=== PATIENT | male | born 1980 | race Caucasian/White ===

== ENCOUNTER 2021-07-25 22:22 | Emergency (ER) | payer MEDICAID ==
[~2021-07-25] VITALS: Ht 175.3 cm; Wt 109.0 kg
[2021-07-25 23:05] VITALS: BP 138/74
[2021-07-25] MEDS ORDERED: normal saline 1000ml 1,000 ML IV ONE ×2 (23:15)
[2021-07-25] MEDS ORDERED: insulin regular, human 10 units/0.1 ml syringe SQ ONE (23:30)
== END 2021-07-26 00:50 ==
LOC: ER 22:23
DX: E11.65 Type 2 diabetes mellitus with hyperglycemia (principal); F32.9 Major depressive disorder, single episode, unspecified; F15.90 Other stimulant use, unspecified, uncomplicated; F11.90 Opioid use, unspecified, uncomplicated; Z90.89 Acquired absence of other organs; Z98.890 Other specified postprocedural states
CPT/HCPCS: 82948; 96360; 96372; 99283; J1815; J7030

== ENCOUNTER 2021-11-09 19:01 | Emergency (ER) | payer MEDICAID ==
[~2021-11-09] VITALS: Ht 177.8 cm; Wt 125.0 kg
[2021-11-09] MEDS ORDERED: normal saline 1000ML IV soln IVB ONE (19:40)
[2021-11-09 20:15] LABS: BASOPHILS % (AUTO) 0.5 % (0-1); EOSINOPHILS # (AUTO) 0.2 X10'3 (0-0.9); EOSINOPHILS % (AUTO) 1.9 % (0-6); HEMOGLOBIN 13.1 g/dl (14.0-17.9); LYMPHOCYTES # (AUTO) 1.1 X10'3 (1.1-4.8); LYMPHOCYTES % (AUTO) 14.2 % (21-51); MEAN CORPUSCULAR HEMOGLOBIN 32.7 PG (27.0-31.0); MEAN CORPUSCULAR HGB CONC 35.5 g/dL (33.0-36.5); MEAN PLATELET VOLUME 7.3 FL (7.4-10.4); MONOCYTES # (AUTO) 0.6 X10'3 (0-0.9); NEUTROPHILS # (AUTO) 6.1 X10'3 (1.8-7.7); NEUTROPHILS % (AUTO) 75.4 % (42-75); PLATELET COUNT 306 X10'3 (140-440); RED BLOOD COUNT 4.02 X10'6 (4.70-6.10); RED CELL DISTRIBUTION WIDTH 13.7 % (11.5-14.5)
[2021-11-09] MEDS ORDERED: insulin regular, human 10 units/0.1 ml syringe IV ONE (20:20)
[2021-11-09 20:29] LABS: ALANINE AMINOTRANSFERASE 40 U/L (12-78); ALBUMIN 3.2 G/DL (3.4-5.0); ALBUMIN/GLOBULIN RATIO 0.5 (1.1-1.5); ALKALINE PHOSPHATASE 75 IU/L (46-116); ANION GAP 7 (8-16); ASPARTATE AMINO TRANSFERASE 23 U/L (10-37); BILIRUBIN,TOTAL 0.2 MG/DL (0.1-1.0); BLOOD UREA NITROGEN 21 MG/DL (7-18); CALCIUM 8.9 MG/DL (8.5-10.1); CHLORIDE 94 MMOL/L (99-107); CREATININE 1.31 MG/DL (0.60-1.10); LIPASE 66 U/L (73-393); SODIUM 130 MMOL/L (135-145); TOTAL CARBON DIOXIDE 28.9 MMOL/L (24-32); TOTAL PROTEIN 9.4 G/DL (6.4-8.2); eGFR 60 ML/MIN
[2021-11-09 20:41] LABS: POTASSIUM 4.7 MMOL/L (3.5-5.1)
[2021-11-09 20:43] LABS: GLUCOSE 634 MG/DL (70-104)
[2021-11-09 21:24] VITALS: BP 147/91
== END 2021-11-09 21:26 | disposition home or self-care (01) ==
LOC: ER 19:01
DX: E11.65 Type 2 diabetes mellitus with hyperglycemia (principal); J42 Unspecified chronic bronchitis; R07.89 Other chest pain; R05.9 Cough, unspecified; F32.9 Major depressive disorder, single episode, unspecified; F17.200 Nicotine dependence, unspecified, uncomplicated; F12.90 Cannabis use, unspecified, uncomplicated; Z90.89 Acquired absence of other organs; Z98.890 Other specified postprocedural states
CPT/HCPCS: 36415; 71045; 80053; 82948; 83690; 85025; 96361; 96374; 99284; J1815; J7030

== ENCOUNTER 2023-02-03 19:47 | Inpatient (IN) | payer MEDICAID ==
[~2023-02-03] VITALS: Ht 177.8 cm; Wt 118.2 kg
[2023-02-03] MEDS ORDERED: temazepam 15mg capsule PO PRN (21:00)
[2023-02-03] MEDS ORDERED: cefepime 2g/NS 100ml ADVANTAGE 100 ML IV STA (21:49)
[2023-02-03] MEDS ORDERED: normal saline 1000ml 1,000 ML IV ONE (21:50)
[2023-02-03] MEDS ORDERED: vancomycin/NS 1 GM ADD-VANTAGE 250 ML IV ONE (21:50)
[2023-02-03 22:23] LABS: BASOPHILS % (AUTO) 0.4 % (0-1); EOSINOPHILS % (AUTO) 0.2 % (0-6); HEMATOCRIT 32.4 % (42.0-52.0); HEMOGLOBIN 10.9 g/dl (14.0-17.9); LYMPHOCYTES # (AUTO) 0.9 X10'3 (1.1-4.8); LYMPHOCYTES % (AUTO) 8.2 % (21-51); MEAN CORPUSCULAR HEMOGLOBIN 30.7 PG (27.0-31.0); MEAN CORPUSCULAR HGB CONC 33.7 g/dL (33.0-36.5); MEAN CORPUSCULAR VOLUME 90.9 FL (78-98); MEAN PLATELET VOLUME 7.1 FL (7.4-10.4); MONOCYTES # (AUTO) 0.8 X10'3 (0-0.9); MONOCYTES % (AUTO) 6.5 % (2-12); NEUTROPHILS # (AUTO) 9.8 X10'3 (1.8-7.7); NEUTROPHILS % (AUTO) 84.7 % (42-75); PLATELET COUNT 482 X10'3 (140-440); RED BLOOD COUNT 3.56 X10'6 (4.70-6.10); RED CELL DISTRIBUTION WIDTH 13.9 % (11.5-14.5); WHITE BLOOD COUNT 11.6 X10'3 (4.5-11.0)
[2023-02-03 22:27] LABS: CLARITY,URINE CLEAR (Clear); COLOR,URINE YELLOW (Yellow); GLUCOSE, URINE >=1000 mg/dl (Neg); KETONES,URINE 15 mg/dl (Neg); LEUKOCYTE ESTERASE ,URINE NEGATIVE (Neg); NITRITES, URINE NEGATIVE (Neg); OCCULT BLOOD,URINE SMALL (Neg); PROTEIN,URINE 100 mg/dl (Neg); UROBILINOGEN,URINE 0.2 E.U/dL (0.2-1.0)
[2023-02-03 22:31] LABS: UA COLLECTION TYPE CLN CATCH MIDSTREAM
[2023-02-03 22:33] LABS: BACTERIA,URINE NONE SEEN /HPF (Neg); RBC,URINE 0-2 /HPF (0-2); SQUAMOUS EPITHELIAL CELL,UR FEW /LPF (FEW); WBC,URINE 0-4 /HPF (0-4)
[2023-02-03 22:49] LABS: ALANINE AMINOTRANSFERASE 8 U/L (12-78); ALBUMIN 2.5 G/DL (3.4-5.0); ALBUMIN/GLOBULIN RATIO 0.4 (1.1-1.5); ALKALINE PHOSPHATASE 86 IU/L (46-116); ANION GAP 7 (8-16); ASPARTATE AMINO TRANSFERASE 11 U/L (10-37); BILIRUBIN,TOTAL 0.3 MG/DL (0.1-1.0); BLOOD UREA NITROGEN 15 MG/DL (7-18); BUN/CREATININE RATIO 12.9 (5.4-32.0); CHLORIDE 93 MMOL/L (99-107); CREATININE 1.16 MG/DL (0.60-1.10); MAGNESIUM 1.8 MG/DL (1.5-2.4); POTASSIUM 4.4 MMOL/L (3.5-5.1); SODIUM 128 MMOL/L (135-145); TOTAL CARBON DIOXIDE 27.7 MMOL/L (24-32); TOTAL PROTEIN 9.1 G/DL (6.4-8.2); eGFR 69 ML/MIN
[2023-02-03] MEDS ORDERED: mag hydrox/Alum hydrox/simeth 30ml oral suspension PO PRN (23:00)
[2023-02-03] MEDS ORDERED: acetaminophen 325mg tablet PO PRN ×2 (23:00)
[2023-02-03] MEDS ORDERED: potassium Cl 40MEQ/1/2NS 520ml 520 ML IV PRN (23:00)
[2023-02-03] MEDS ORDERED: DEXTROSE 15 GM of carb/4 tabs (each vial/BOTTLE has 4 tablets) PO PRN ×2 (23:00)
[2023-02-03] MEDS ORDERED: glucagon, human recombinant 1mg kit SUBCUT PRN (23:00)
[2023-02-03] MEDS ORDERED: magnesium Cl slow-release 64mg tablet PO PRN (23:00)
[2023-02-03] MEDS ORDERED: bisacodyl 10mg suppository rectal RC PRN (23:00)
[2023-02-03] MEDS ORDERED: MESSAGE TO PHARMACY PO ONE (23:00)
[2023-02-03] MEDS ORDERED: potassium Cl 20 mEq SR tablet PO PRN ×2 (23:00)
[2023-02-03] MEDS: normal saline 1000ml 1,000 ML IV SCH (23:00)
[2023-02-03] MEDS ORDERED: ondansetron/PF 4mg/2ml inj IV PRN (23:00)
[2023-02-03] MEDS ORDERED: HYDROcodone/acetaminophen 5mg/325mg tablet PO PRN (23:00)
[2023-02-03] MEDS ORDERED: dextrose 50%-water 50ml dispensing syringe IV PRN ×2 (23:00)
[2023-02-03] MEDS ORDERED: magnesium 4gm in 100ml NS 100 ML IV PRN (23:00)
[2023-02-03 23:04] LABS: GLUCOSE 600 MG/DL (70-104)
--- NOTE | 2023-02-03 23:59 | NUR ---
Per Dr. García. Nighttime correctional tool, Level 2 to be used for initial humalog administration.
[2023-02-04] MEDS: insulin Lispro (HumaLOG) vial - multi-dose SQ SCH ×3 (00:25→21:26)
[2023-02-04] MEDS: insulin glargine (Lantus) pen - multi-dose SQ SCH ×2 (01:00→21:24)
--- NOTE | 2023-02-04 01:09 | NUR ---
TIGHT ROPE WALKER Syeda trimmed flap of loose skin from wound on medial aspect of Right foot. Wounds dressed with xeroform gauze and gauze roll.
[2023-02-04] MEDS ORDERED: NO HOME MEDS (05:28)
[2023-02-04] MEDS: cefepime 1GM/NS ADD-VANTAGE 100 ML IV SCH ×3 (07:03→22:21)
[2023-02-04] MEDS: docusate sod 100mg capsule PO SCH ×2 (07:09→20:53)
[2023-02-04] MEDS: heparin, porcine 5000 units/ml vial SQ SCH ×2 (07:10→20:54)
[2023-02-04] MEDS: K and/or MAG REPLACEMENT MC SCH ×2 (08:00→20:00)
[2023-02-04 08:09] LABS: BASOPHILS % (AUTO) 0.4 % (0-1); EOSINOPHILS # (AUTO) 0.1 X10'3 (0-0.9); HEMATOCRIT 31.5 % (42.0-52.0); HEMOGLOBIN 10.9 g/dl (14.0-17.9); LYMPHOCYTES # (AUTO) 1.5 X10'3 (1.1-4.8); LYMPHOCYTES % (AUTO) 16.4 % (21-51); MEAN CORPUSCULAR HGB CONC 34.5 g/dL (33.0-36.5); MEAN CORPUSCULAR VOLUME 89.8 FL (78-98); MEAN PLATELET VOLUME 6.7 FL (7.4-10.4); MONOCYTES # (AUTO) 0.9 X10'3 (0-0.9); MONOCYTES % (AUTO) 10.1 % (2-12); NEUTROPHILS # (AUTO) 6.5 X10'3 (1.8-7.7); NEUTROPHILS % (AUTO) 72.1 % (42-75); PLATELET COUNT 423 X10'3 (140-440); RED CELL DISTRIBUTION WIDTH 13.9 % (11.5-14.5)
[2023-02-04 08:20] LABS: ALANINE AMINOTRANSFERASE 10 U/L (12-78); ALBUMIN 2.1 G/DL (3.4-5.0); ALBUMIN/GLOBULIN RATIO 0.4 (1.1-1.5); ALKALINE PHOSPHATASE 67 IU/L (46-116); ANION GAP 5 (8-16); ASPARTATE AMINO TRANSFERASE 12 U/L (10-37); BILIRUBIN,TOTAL 0.3 MG/DL (0.1-1.0); BLOOD UREA NITROGEN 11 MG/DL (7-18); BUN/CREATININE RATIO 14.9 (5.4-32.0); CALCIUM 8.6 MG/DL (8.5-10.1); CHLORIDE 101 MMOL/L (99-107); CREATININE 0.74 MG/DL (0.60-1.10); GLUCOSE 264 MG/DL (70-104); MAGNESIUM 1.7 MG/DL (1.5-2.4); POTASSIUM 3.6 MMOL/L (3.5-5.1); SODIUM 134 MMOL/L (135-145); TOTAL CARBON DIOXIDE 27.7 MMOL/L (24-32); TOTAL PROTEIN 7.9 G/DL (6.4-8.2); eGFR > 90 ML/MIN
[2023-02-04] MEDS: HYDROcodone/acetaminophen 10/325mg tab PO PRN ×3 (09:57→20:53)
[2023-02-04] MEDS: VANCOmycin 1250MG/NS 250ml Bag 250 ML IV SCH ×2 (09:57→23:30)
[2023-02-04] MEDS: normal saline 1000ml 1,000 ML IV SCH ×3 (09:58→20:54)
--- NOTE | 2023-02-04 10:05 | NUR ---
Patient had episode of low O2 sat while he was sleeping, went down to 84% on room air. I woke up patient then went up to 91%. Hooked patient to O2 at 2 lpm/nc. Pt admitted he has sleep apnea history but said to me that he do not have CPAP currently
[2023-02-04] MEDS ORDERED: vancomycin/NS 1 GM ADD-VANTAGE 250 ML IV SCH (11:00)
[2023-02-04] MEDS: clindamycin 600mg/D5W 50ml 50 ML IV SCH ×3 (11:06→20:54)
--- NOTE | 2023-02-04 11:20 | NUR ---
I was notified that MRI cannot get done today due to staffing issue at their dept
--- NOTE | 2023-02-04 11:23 | NUR ---
Paged Dr. Pavon: SHAMIR Buckley RN RE: Deni Carrington. Just FERMÍN, MRI lower extremity cannot done today due to staffing issue
--- NOTE | 2023-02-04 11:24 | NUR ---
Wound care of right foot performed by wound care nurse at bedside.
[2023-02-04 12:17] LABS: URINE AMPHETAMINE SCREEN NEGATIVE (Neg); URINE BARBITUATE SCREEN NEGATIVE (Neg); URINE BENZODIAZEPINES SCREEN NEGATIVE (Neg); URINE CANNABINOID SCREEN NEGATIVE (Neg); URINE COCAINE SCREEN NEGATIVE (Neg); URINE METHADONE SCREEN NEGATIVE (Neg); URINE OPIATE SCREEN NEGATIVE (Neg); URINE PHENCYCLIDINE SCREEN NEGATIVE (Neg)
--- NOTE | 2023-02-04 13:35 | NUR ---
PRESSURE ULCER EDUCATION: DEFINITION: A pressure ulcer is an area of skin that breaks down when you stay in one position too long. The constant pressure against the skin reduces the blood flow to that area and the affected tissue dies. CAUSES: "Being bedridden or in a wheelchair "Fragile skin "Having a chronic condition, such as diabetes or vascular disease "Inability to move certain parts of your body without assistance "Older age "Incontinence of urine or stool SYMPTOMS: "A reddened area that DOES NOT turn white when pressed on - this can be the beginning of a pressure ulcer "A blister, deep sore or a crater - these can be advanced pressure ulcers FIRST AID: "Relieve the pressure on this area "Keep the area clean and dry "Call your primary doctor if you see any of the above symptoms "DO NOT massage the area "DO NOT use a donut shaped or ring shaped pillow- these actually interfere with the blood flow and cause complications PREVENTION: "Check for pressure ulcers everyday "Change position at least every two hours to relieve pressure "Use items that help relieve pressure- pillows, sheepskin, foam padding, and powders. "Keep skin clean and dry "Eat healthy well balanced meals "Exercise daily IF YOU SEE ANY OF THESE SYMPTOMS WHILE IN THE HOSPITAL - TELL YOUR NURSE IMMEDIATELY. IF YOU SEE ANY OF THESE SYMPTOMS WHILE AT HOME OR HAVE ANY QUESTIONS OR CONCERNS ABOUT PRESSURE ULCERS - CALL YOUR PRIMARY DOCTOR IMMEDIATELY. Addendum: 02/04/23 at 1336 by Radha Yanes RN Amended: Links added.
[2023-02-04] MEDS ORDERED: iohexol 350 MG/ML 50ML vial IV ONE (14:32)
[2023-02-04] MEDS ORDERED: iohexol 350MG/ML 100ml bottle IV ONE (14:33)
[2023-02-04 15:07] LABS: HEMOGLOBIN A1C > 12.0 % (4.5-6.2)
--- NOTE | 2023-02-04 15:36 | NUR ---
I called the pharmacist to request change in schedule of Cleocin as I just administered the first dose at 1100 am, the order said Q6hrs. Per pharmacist Lupe, I can non-admin the Cleocin as she cannot change the schedule.
--- NOTE | 2023-02-04 19:05 | NUR ---
Report called to Kathleen who kindly accepts report at this time. Patient cleared for transport to receiving unit.
[2023-02-04 20:10] VITALS: BP 135/70
[2023-02-04 22:00] VITALS: BP 139/73
[2023-02-04] MEDS ORDERED: heparin 10,000 units/1 ML INJ IV ONE (22:15)
[2023-02-04 23:11] LABS: APTT 31 SECONDS (22-32)
[2023-02-04] MEDS: heparin 25,000 UNIT/250ml bag 250 ML IV PRN (23:21)
[2023-02-05] MEDS: HYDROcodone/acetaminophen 10/325mg tab PO PRN ×5 (02:03→23:21)
[2023-02-05 02:05] VITALS: BP 137/76
[2023-02-05] MEDS: clindamycin 600mg/D5W 50ml 50 ML IV SCH ×4 (02:05→19:59)
[2023-02-05] MEDS: cefepime 1GM/NS ADD-VANTAGE 100 ML IV SCH ×3 (05:32→21:57)
[2023-02-05 06:00] VITALS: BP 142/81
--- NOTE | 2023-02-05 06:49 | NUR ---
Patient in room DEEP 356. I have received report from Kathleen and had the opportunity to ask questions and assume patient care.
--- NOTE | 2023-02-05 06:51 | NUR ---
Problems reprioritized. Patient report given, questions answered & plan of care reviewed with LALO ZEPEDA.
[2023-02-05 06:54] LABS: BASOPHILS # (AUTO) 0.1 X10'3 (0-0.2); BASOPHILS % (AUTO) 0.7 % (0-1); EOSINOPHILS # (AUTO) 0.1 X10'3 (0-0.9); EOSINOPHILS % (AUTO) 1.2 % (0-6); HEMOGLOBIN 9.7 g/dl (14.0-17.9); LYMPHOCYTES # (AUTO) 1.6 X10'3 (1.1-4.8); LYMPHOCYTES % (AUTO) 17.8 % (21-51); MEAN CORPUSCULAR HEMOGLOBIN 29.3 PG (27.0-31.0); MEAN CORPUSCULAR HGB CONC 32.4 g/dL (33.0-36.5); MEAN CORPUSCULAR VOLUME 90.5 FL (78-98); MEAN PLATELET VOLUME 7.2 FL (7.4-10.4); MONOCYTES # (AUTO) 0.9 X10'3 (0-0.9); MONOCYTES % (AUTO) 9.8 % (2-12); NEUTROPHILS # (AUTO) 6.4 X10'3 (1.8-7.7); NEUTROPHILS % (AUTO) 70.5 % (42-75); PLATELET COUNT 435 X10'3 (140-440); RED BLOOD COUNT 3.32 X10'6 (4.70-6.10); RED CELL DISTRIBUTION WIDTH 13.7 % (11.5-14.5)
[2023-02-05 07:24] LABS: ALANINE AMINOTRANSFERASE 7 U/L (12-78); ALBUMIN 1.8 G/DL (3.4-5.0); ALBUMIN/GLOBULIN RATIO 0.3 (1.1-1.5); ALKALINE PHOSPHATASE 61 IU/L (46-116); ANION GAP 7 (8-16); ASPARTATE AMINO TRANSFERASE 6 U/L (10-37); BILIRUBIN,TOTAL 0.2 MG/DL (0.1-1.0); BLOOD UREA NITROGEN 10 MG/DL (7-18); BUN/CREATININE RATIO 11.2 (5.4-32.0); CALCIUM 8.5 MG/DL (8.5-10.1); CHLORIDE 102 MMOL/L (99-107); CHOL/HDL RATIO 6.5 (0.00-4.99); CHOLESTEROL 216 MG/DL (0-200); CREATININE 0.89 MG/DL (0.60-1.10); GLUCOSE 333 MG/DL (70-104); HDL CHOLESTEROL 33 MG/DL (35-60); LDL CHOLESTEROL 137 MG/DL (50-100); MAGNESIUM 1.7 MG/DL (1.5-2.4); POTASSIUM 3.8 MMOL/L (3.5-5.1); SODIUM 136 MMOL/L (135-145); TOTAL CARBON DIOXIDE 26.9 MMOL/L (24-32); TOTAL PROTEIN 7.5 G/DL (6.4-8.2); TRIGLYCERIDES 232 MG/DL (20-135); eGFR > 90 ML/MIN
[2023-02-05] MEDS: K and/or MAG REPLACEMENT MC SCH ×2 (08:00→20:00)
[2023-02-05] MEDS: insulin Lispro (HumaLOG) vial - multi-dose SQ SCH ×4 (09:18→21:54)
[2023-02-05] MEDS: docusate sod 100mg capsule PO SCH ×2 (09:24→19:59)
[2023-02-05] MEDS: carVEDilol 3.125mg tablet PO SCH ×2 (09:25→19:59)
[2023-02-05] MEDS: aspirin 81mg tab.chew PO SCH (09:26)
[2023-02-05] MEDS: atorvastatin 20mg tablet PO SCH (09:26)
[2023-02-05] MEDS: lisinopril 20mg tablet PO SCH (09:26)
[2023-02-05] MEDS: VANCOmycin 1250MG/NS 250ml Bag 250 ML IV SCH ×2 (10:56→23:19)
[2023-02-05 11:00] VITALS: BP 133/74
[2023-02-05] MEDS: heparin 25,000 UNIT/250ml bag 250 ML IV PRN (11:59)
[2023-02-05] MEDS ORDERED: FLU VACC QS2022-23(6MOS UP)/PF 60 MCG/0.5 ML SYRINGE IMVAC ONE (12:00)
[2023-02-05] MEDS ORDERED: pneumococcal 23-VAL P-sac vacc 25 mcg/0.5ml vial IMVAC ONE (12:00)
--- NOTE | 2023-02-05 14:07 | NUR ---
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 R foot eschar wound w/ no depth per WOC note. Pt seen by RD for written/verbal DM diet ed w/ verbal high protein diet ed and RD contact information provided. Pt reports has been without insulin past ~2 months has attempted f/u at [facility] but unable to get refill for insulin Rx-CM notified. Pt declined verbal DM diet reports ed in past but is agreeable to written handout w/ RD contact information provided. Pt reports good appetite still hungry after meals is agreeable to additional protein TIDWM; dietary notified. RD encouraged pt to contact dietitian's office if further nutrition questions/concerns this admit. Addendum: 02/05/23 at [address] Amended: Links added.
[2023-02-05 14:38] LABS: HBSAG SCREEN Negative (Negative); HEP B CORE AB, TOT Negative (Negative)
[2023-02-05] MEDS: normal saline 1000ml 1,000 ML IV SCH ×2 (15:00→23:19)
[2023-02-05] MEDS ORDERED: GADOTERATE MEGLUMINE 7.5 MMOL/15 ML VIAL IV ONE (16:58)
[2023-02-05 18:00] VITALS: BP 116/69
--- NOTE | 2023-02-05 18:42 | NUR ---
Problems reprioritized. Patient report given, questions answered & plan of care reviewed with Addendum: 02/05/23 at 1843 by Azeb Hanson RN Report given to Kathleen
[2023-02-05 19:13] VITALS: BP 101/60
[2023-02-05] MEDS: heparin 10,000 units/1 ML INJ IV PRN (19:47)
[2023-02-05] MEDS ORDERED: VANCOMYCIN LEVEL IV ONE (21:30)
[2023-02-05] MEDS: insulin glargine (Lantus) pen - multi-dose SQ SCH (21:56)
[2023-02-05 22:00] VITALS: BP 112/64
--- NOTE | 2023-02-05 22:51 | NUR ---
Student Medication Administration: For this medication-pass time frame, all medication were reviewed, dispensed, administered and documented per hospital policy by Marycarmen PINA [facility].
--- NOTE | 2023-02-05 23:35 | NUR ---
Student documentation: I have reviewed interventions, assessments performed and documented by YOVANI Delong [facility].
[2023-02-06] VITALS (20 sets, daily range): BP systolic 96–137; BP diastolic 56–82
[2023-02-06] MEDS: heparin 25,000 UNIT/250ml bag 250 ML IV PRN (01:05)
[2023-02-06] MEDS: clindamycin 600mg/D5W 50ml 50 ML IV SCH ×4 (02:08→19:41)
[2023-02-06] MEDS: HYDROcodone/acetaminophen 10/325mg tab PO PRN ×4 (03:55→23:38)
[2023-02-06 04:59] LABS: BASOPHILS % (AUTO) 0.2 % (0-1); EOSINOPHILS # (AUTO) 0.1 X10'3 (0-0.9); EOSINOPHILS % (AUTO) 1.1 % (0-6); HEMATOCRIT 28.2 % (42.0-52.0); HEMOGLOBIN 9.6 g/dl (14.0-17.9); LYMPHOCYTES # (AUTO) 1.7 X10'3 (1.1-4.8); LYMPHOCYTES % (AUTO) 18.3 % (21-51); MEAN CORPUSCULAR HEMOGLOBIN 30.7 PG (27.0-31.0); MEAN CORPUSCULAR HGB CONC 34.2 g/dL (33.0-36.5); MEAN CORPUSCULAR VOLUME 89.8 FL (78-98); MEAN PLATELET VOLUME 7.1 FL (7.4-10.4); MONOCYTES # (AUTO) 0.8 X10'3 (0-0.9); MONOCYTES % (AUTO) 8.9 % (2-12); NEUTROPHILS # (AUTO) 6.5 X10'3 (1.8-7.7); NEUTROPHILS % (AUTO) 71.5 % (42-75); PLATELET COUNT 420 X10'3 (140-440); RED BLOOD COUNT 3.14 X10'6 (4.70-6.10); WHITE BLOOD COUNT 9.1 X10'3 (4.5-11.0)
[2023-02-06] MEDS: cefepime 1GM/NS ADD-VANTAGE 100 ML IV SCH ×3 (05:04→22:08)
[2023-02-06 05:18] LABS: ALANINE AMINOTRANSFERASE 7 U/L (12-78); ALBUMIN 1.8 G/DL (3.4-5.0); ALBUMIN/GLOBULIN RATIO 0.3 (1.1-1.5); ALKALINE PHOSPHATASE 55 IU/L (46-116); ANION GAP 5 (8-16); ASPARTATE AMINO TRANSFERASE 10 U/L (10-37); BILIRUBIN,TOTAL 0.2 MG/DL (0.1-1.0); BLOOD UREA NITROGEN 13 MG/DL (7-18); BUN/CREATININE RATIO 16.5 (5.4-32.0); CALCIUM 8.7 MG/DL (8.5-10.1); CHLORIDE 105 MMOL/L (99-107); CREATININE 0.79 MG/DL (0.60-1.10); GLUCOSE 201 MG/DL (70-104); MAGNESIUM 1.7 MG/DL (1.5-2.4); POTASSIUM 3.9 MMOL/L (3.5-5.1); SODIUM 138 MMOL/L (135-145); TOTAL CARBON DIOXIDE 28.4 MMOL/L (24-32); TOTAL PROTEIN 7.5 G/DL (6.4-8.2); eGFR > 90 ML/MIN
--- NOTE | 2023-02-06 06:27 | NUR ---
Problems reprioritized. Patient report given, questions answered & plan of care reviewed with LALO ZEPEDA.
--- NOTE | 2023-02-06 06:33 | NUR ---
Patient in room DEEP 356. I have received report from Kathleen and had the opportunity to ask questions and assume patient care.
[2023-02-06] MEDS: aspirin 81mg tab.chew PO SCH (08:30)
[2023-02-06] MEDS: K and/or MAG REPLACEMENT MC SCH ×2 (08:30→20:00)
[2023-02-06] MEDS: docusate sod 100mg capsule PO SCH ×2 (09:03→19:42)
[2023-02-06] MEDS: carVEDilol 3.125mg tablet PO SCH ×2 (09:03→19:42)
[2023-02-06] MEDS: atorvastatin 20mg tablet PO SCH (09:03)
[2023-02-06] MEDS: lisinopril 20mg tablet PO SCH (09:08)
[2023-02-06] MEDS: insulin Lispro (HumaLOG) vial - multi-dose SQ SCH ×2 (09:18→20:14)
--- NOTE | 2023-02-06 09:52 | NUR ---
Stopped heparin drip at 07:00 per surgeon. Heparin to be restarted 6 hours after surgery. Scheduled ptt lab draw at 09:07 resulted in 27 ptt. Spoke with lab regarding next draw, results and restart time frame.
[2023-02-06] MEDS: VANCOmycin 1250MG/NS 250ml Bag 250 ML IV SCH ×2 (10:48→23:20)
[2023-02-06] MEDS: normal saline 1000ml 1,000 ML IV SCH ×2 (11:00→21:00)
[2023-02-06] MEDS ORDERED: pneumococcal 23-VAL P-sac vacc 25 mcg/0.5ml vial IMVAC ONE (11:30)
--- NOTE | 2023-02-06 11:59 | NUR ---
Dr Mcgregor was contacted, and stated he will consult on this pt today.
[2023-02-06] MEDS ORDERED: BUPIVAcaine 0.5% inj/PF 30 ML ONE (12:18)
[2023-02-06] MEDS ORDERED: FLU VACC QS2022-23(6MOS UP)/PF 60 MCG/0.5 ML SYRINGE IMVAC ONE (13:00)
--- NOTE | 2023-02-06 13:00 | NUR ---
Patient went to OR
[2023-02-06] MEDS ORDERED: sevoflurane 250ml liquid IH ONE (13:03)
[2023-02-06] MEDS ORDERED: midazolam 1 mg/ML 2ml injection ONE (13:08)
[2023-02-06] MEDS ORDERED: fentaNYL/PF 50MCG/1 ML 2ML syringe ONE (13:08)
[2023-02-06] MEDS ORDERED: propofol inj 20 ML IV ONE (13:09)
[2023-02-06] MEDS ORDERED: vancomycin 1,000mg inj ONE (13:34)
[2023-02-06] MEDS ORDERED: BUPIVAcaine 0.5% inj/PF 30 ml vial IJ ONE (13:41)
--- NOTE | 2023-02-06 13:43 | NUR ---
Student documentation:[facility] student Leigh I have reviewed and agree with all interventions, assessments performed and medication administration per hospital policy and documented by Mariam
--- NOTE | 2023-02-06 13:53 | NUR ---
Received from OR via ORTHO BED WITH GAADRIAN , accompanied by Anesthesiologist GERALDINE and report given by Anesthesiolgist. PATIENT WITH 29G PIV IN RIGHT UE RUNNING LR AT 100. GLENDA VASQUEZ .RIGHT ANKLE AND FOOT COVERED WITH GAUZE DRESSING WITH TOES EXPOSED. + CAP REFILL TO EXPOSED TOES. ELEVATED FOOT OF BED AND GATCHED FOB. 10L MASK ON WITH 100% SATURATIONS. Addendum: 02/06/23 at 1409 by Toby Bui RN, RN Amended: Links added.
[2023-02-06] MEDS ORDERED: morphine 4 MG/ML inj SYRINge IV PRN (14:00)
[2023-02-06] MEDS ORDERED: proCHLORperazine 10 MG/2 ml inj IV PRN (14:00)
[2023-02-06] MEDS ORDERED: meperidine/PF 25mg/ml syringe IV PRN ×3 (14:00)
[2023-02-06] MEDS ORDERED: ringers solution, lacted 1,000 ML IV SCH (14:00)
[2023-02-06] MEDS ORDERED: ondansetron/PF 4mg/2ml inj IV PRN (14:00)
[2023-02-06] MEDS ORDERED: morphine 2 MG/ML inj. syringe IV PRN (14:00)
--- NOTE | 2023-02-06 14:29 | NUR ---
Patient in room DEEP 356. I have received report from Toby in recovery and had the opportunity to ask questions and assume patient care.
--- NOTE | 2023-02-06 14:33 | NUR ---
Report called to receiving nurse. Transferred via ORTHO BED WITH NO Belongings . Special Issues communicated to receiving nurse DUANE MAY. VSS. RECENTLY MEDICATED FOR PAIN. ELEVATED LE ABOVE HEART WITH GATCHED BED. VSS. ALL BELONGINGS IN PATIENT ROOM. CALL LIGHT IN HAND. Addendum: 02/06/23 at 1436 by Toby Bui RN, RN Amended: Links added.
--- NOTE | 2023-02-06 14:50 | NUR ---
Patient returned from recovery, situated in room, post op vitals started. Patient is resting comfortably.
--- NOTE | 2023-02-06 18:20 | NUR ---
Patient in room DEEP 356. I have received report from LALO Bowie and had the opportunity to ask questions and assume patient care.
--- NOTE | 2023-02-06 18:30 | NUR ---
Problems reprioritized. Patient report given, questions answered & plan of care reviewed with
[2023-02-06] MEDS: insulin glargine (Lantus) pen - multi-dose SQ SCH (22:12)
[2023-02-07] MEDS: clindamycin 600mg/D5W 50ml 50 ML IV SCH ×2 (02:08→08:30)
[2023-02-07] MEDS: heparin 25,000 UNIT/250ml bag 250 ML IV PRN ×2 (03:45→16:07)
[2023-02-07] MEDS: HYDROcodone/acetaminophen 10/325mg tab PO PRN ×5 (04:58→22:02)
[2023-02-07 05:06] LABS: BASOPHILS # (AUTO) 0.1 X10'3 (0-0.2); BASOPHILS % (AUTO) 0.7 % (0-1); EOSINOPHILS # (AUTO) 0.1 X10'3 (0-0.9); EOSINOPHILS % (AUTO) 0.7 % (0-6); HEMATOCRIT 27.3 % (42.0-52.0); HEMOGLOBIN 9.1 g/dl (14.0-17.9); LYMPHOCYTES # (AUTO) 1.6 X10'3 (1.1-4.8); LYMPHOCYTES % (AUTO) 16.3 % (21-51); MEAN CORPUSCULAR HEMOGLOBIN 30.1 PG (27.0-31.0); MEAN CORPUSCULAR HGB CONC 33.4 g/dL (33.0-36.5); MEAN CORPUSCULAR VOLUME 90.2 FL (78-98); MEAN PLATELET VOLUME 6.8 FL (7.4-10.4); MONOCYTES % (AUTO) 10.3 % (2-12); NEUTROPHILS # (AUTO) 7.1 X10'3 (1.8-7.7); PLATELET COUNT 465 X10'3 (140-440); RED BLOOD COUNT 3.02 X10'6 (4.70-6.10); WHITE BLOOD COUNT 9.8 X10'3 (4.5-11.0)
[2023-02-07 05:21] LABS: ALBUMIN 1.8 G/DL (3.4-5.0); ALBUMIN/GLOBULIN RATIO 0.3 (1.1-1.5); ALKALINE PHOSPHATASE 61 IU/L (46-116); ANION GAP 9 (8-16); ASPARTATE AMINO TRANSFERASE 14 U/L (10-37); BILIRUBIN,TOTAL 0.2 MG/DL (0.1-1.0); BLOOD UREA NITROGEN 7 MG/DL (7-18); BUN/CREATININE RATIO 9.9 (5.4-32.0); CALCIUM 8.5 MG/DL (8.5-10.1); CHLORIDE 102 MMOL/L (99-107); CREATININE 0.71 MG/DL (0.60-1.10); GLUCOSE 218 MG/DL (70-104); MAGNESIUM 1.7 MG/DL (1.5-2.4); POTASSIUM 3.9 MMOL/L (3.5-5.1); SODIUM 136 MMOL/L (135-145); TOTAL CARBON DIOXIDE 25.3 MMOL/L (24-32); TOTAL PROTEIN 7.8 G/DL (6.4-8.2); eGFR > 90 ML/MIN
[2023-02-07 05:24] LABS: ALANINE AMINOTRANSFERASE < 6 U/L (12-78)
[2023-02-07] MEDS: heparin 10,000 units/1 ML INJ IV PRN ×2 (05:40→20:23)
[2023-02-07 06:00] VITALS: BP 138/70
--- NOTE | 2023-02-07 06:25 | NUR ---
Problems reprioritized. Patient report given, questions answered & plan of care reviewed with LALO Foster.
[2023-02-07] MEDS: normal saline 1000ml 1,000 ML IV SCH ×2 (07:00→17:00)
--- NOTE | 2023-02-07 07:01 | NUR ---
Patient in room DEEP 356. I have received report from angela MAY and had the opportunity to ask questions and assume patient care.
[2023-02-07] MEDS: K and/or MAG REPLACEMENT MC SCH ×2 (08:00→20:00)
[2023-02-07 08:01] VITALS: BP 139/72
[2023-02-07] MEDS: docusate sod 100mg capsule PO SCH ×2 (08:19→19:42)
[2023-02-07] MEDS: lisinopril 20mg tablet PO SCH (08:29)
[2023-02-07] MEDS: carVEDilol 3.125mg tablet PO SCH ×2 (08:29→19:42)
[2023-02-07] MEDS: atorvastatin 20mg tablet PO SCH (08:29)
[2023-02-07] MEDS: aspirin 81mg tab.chew PO SCH (08:30)
[2023-02-07] MEDS: cefepime 1GM/NS ADD-VANTAGE 100 ML IV SCH ×2 (09:42→22:41)
[2023-02-07] MEDS: insulin Lispro (HumaLOG) vial - multi-dose SQ SCH ×3 (09:42→19:42)
[2023-02-07 10:00] VITALS: BP 118/68
--- NOTE | 2023-02-07 11:03 | NUR ---
Initial: Pt admit DX R 3rd toe gangrene w/ cellulitis s/p OR for toe amputation 02/06, T2DM A1C >12.0%, HTN, and hyperlipidemia per EMR. PO ~100% initial carb controlled meals w/ double protein TIDWM started 02/05 in addition to pt having sandwich between meals during prior RD visit; meeting estimated needs. LBM 02/02 routine colace started 02/04 per EMR. No further nutrition interventions at this time. Will continue to follow. Rec: 1. continue carb controlled diet; double protein TIDWM for satiety 2. routine bowel care; utilize PRN bowel regimen in EMR w/ 5 days constipation 3. scaled wt this admit; subsequent weekly wts Addendum: 02/07/23 at [address] Amended: Links added.
[2023-02-07] MEDS: VANCOmycin 1250MG/NS 250ml Bag 250 ML IV SCH ×2 (12:05→23:17)
--- NOTE | 2023-02-07 12:43 | NUR ---
Pt in room 356A. I have received report from student nurse, Jane. I had the ability to ask questions and have assume patient care along with RN, Kristin.
[2023-02-07] MEDS: FLUoxetine 20mg capsule PO SCH (13:11)
--- NOTE | 2023-02-07 14:43 | NUR ---
DIABETIC FOOT CARE EDUCATION PROVIDED BY WOUND CARE * Wash your feet daily with lukewarm water and soap. * Dry your feet well, especially between the toes. * Keep the skin moisturized with lotion, but do not apply it between the toes. * Check your feet for blisters, cuts or sores. * Use an emery board to shape your toenails even with the ends of your toes. * Change daily into clean, soft socks or stockings, not too big or too small. * Keep your feet warm and dry. * Preferably wear special padded socks and shoes that fit well. * Never walk barefoot indoors or outdoors. * Examine your shoes everyday for cracks, johnnie, nails or anything that could hurt your feet. * Tell your doctor if you find any of these problems or have any concerns after examining your feet. Addendum: 02/07/23 at 1443 by Radha Yanes RN Amended: Links added.
--- NOTE | 2023-02-07 15:20 | NUR ---
Message: Deni Carrington#[id number]- Pt loss yet another IV, infiltrated x3, very hard stick. Dr Rosenthal wants a PICC to get all IV meds on board.1 IV OK but pt has heparin drip. Please sign picc order BJ Form with charge.Thank you.
--- NOTE | 2023-02-07 17:44 | NUR ---
PT LOST HIS IV. SEVERAL NURSES ATTEMPTED IVS. CHARGE ANTONIO PUT ONE IN ON RIGHT AC, WORKED FOR A COUPLE OF HRS, THEN IT WAS SAYING HIGH PRESSURE. PICC WAS CALLED, A PIV RIGHT FOREARM, IV INFILTRATED WITHIN 1 HR. VANCO WAS RUNNING, NO MORE PIV AVAILABLE. DR CAZARES WAS CALLED SHE IS AWARE. DR JAUREGUI WAS PAGED. HE IS AWARE. ER IS ATTEMPTING TO START A PIV, SHE IS GOING BACK TO ER TO GET ULTRASOUND. PHARMACY IS AWARE OF VANCO AND ANTIBIOTICS NOT BEEN GIVEN.
[2023-02-07 18:00] VITALS: BP 133/64
--- NOTE | 2023-02-07 18:13 | NUR ---
Problems reprioritized. Patient report given, questions answered & plan of care reviewed with BRIDGER MAY .
[2023-02-07] MEDS ORDERED: potassium Cl 40MEQ/1/2NS 520ml 520 ML IV PRN ×2 (18:15)
[2023-02-07] MEDS ORDERED: potassium Cl 20 mEq SR tablet PO PRN ×2 (18:15)
--- NOTE | 2023-02-07 18:20 | NUR ---
Patient in room DEEP 356. I have received report from LALO Foster and had the opportunity to ask questions and assume patient care.
[2023-02-07] MEDS: insulin glargine (Lantus) pen - multi-dose SQ SCH (21:33)
[2023-02-07 22:00] VITALS: BP 123/63
[2023-02-08] MEDS: clindamycin 600mg/D5W 50ml 50 ML IV SCH ×3 (01:59→14:26)
[2023-02-08] MEDS: HYDROcodone/acetaminophen 10/325mg tab PO PRN ×4 (02:00→20:49)
[2023-02-08] MEDS: normal saline 1000ml 1,000 ML IV SCH ×3 (03:00→23:00)
[2023-02-08 05:06] LABS: BASOPHILS % (AUTO) 0.4 % (0-1); EOSINOPHILS # (AUTO) 0.1 X10'3 (0-0.9); EOSINOPHILS % (AUTO) 0.8 % (0-6); HEMATOCRIT 27.8 % (42.0-52.0); HEMOGLOBIN 9.8 g/dl (14.0-17.9); LYMPHOCYTES # (AUTO) 1.5 X10'3 (1.1-4.8); LYMPHOCYTES % (AUTO) 15.4 % (21-51); MEAN CORPUSCULAR HEMOGLOBIN 31.5 PG (27.0-31.0); MEAN CORPUSCULAR VOLUME 90.1 FL (78-98); MEAN PLATELET VOLUME 6.6 FL (7.4-10.4); MONOCYTES # (AUTO) 1.1 X10'3 (0-0.9); MONOCYTES % (AUTO) 11.2 % (2-12); NEUTROPHILS # (AUTO) 7.2 X10'3 (1.8-7.7); NEUTROPHILS % (AUTO) 72.2 % (42-75); PLATELET COUNT 444 X10'3 (140-440); RED BLOOD COUNT 3.09 X10'6 (4.70-6.10)
[2023-02-08 05:21] LABS: ALBUMIN 1.7 G/DL (3.4-5.0); ALBUMIN/GLOBULIN RATIO 0.3 (1.1-1.5); ALKALINE PHOSPHATASE 53 IU/L (46-116); ANION GAP 7 (8-16); ASPARTATE AMINO TRANSFERASE 11 U/L (10-37); BILIRUBIN,TOTAL 0.2 MG/DL (0.1-1.0); BLOOD UREA NITROGEN 10 MG/DL (7-18); BUN/CREATININE RATIO 12.8 (5.4-32.0); CALCIUM 8.6 MG/DL (8.5-10.1); CHLORIDE 105 MMOL/L (99-107); CREATININE 0.78 MG/DL (0.60-1.10); GLUCOSE 174 MG/DL (70-104); POTASSIUM 3.9 MMOL/L (3.5-5.1); SODIUM 140 MMOL/L (135-145); TOTAL CARBON DIOXIDE 28.5 MMOL/L (24-32); TOTAL PROTEIN 7.7 G/DL (6.4-8.2); eGFR > 90 ML/MIN
[2023-02-08 05:31] LABS: ALANINE AMINOTRANSFERASE 7 U/L (12-78)
[2023-02-08 06:00] VITALS: BP 134/70
[2023-02-08] MEDS: cefepime 1GM/NS ADD-VANTAGE 100 ML IV SCH ×3 (06:04→21:18)
--- NOTE | 2023-02-08 06:49 | NUR ---
Problems reprioritized. Patient report given, questions answered & plan of care reviewed with JOE Enriquez.
--- NOTE | 2023-02-08 06:51 | NUR ---
Patient in room DEEP 356. I have received report from Charley MAY and had the opportunity to ask questions and assume patient care.
--- NOTE | 2023-02-08 07:39 | NUR ---
Student Medication Administration: For this medication-pass time frame, all medication were reviewed, dispensed, administered and documented per hospital policy by Mynor Chavez student with Krish Dominguez RN instructor. .
[2023-02-08] MEDS: K and/or MAG REPLACEMENT MC SCH ×2 (08:00→20:00)
[2023-02-08] MEDS: FLUoxetine 20mg capsule PO SCH (08:26)
[2023-02-08] MEDS: atorvastatin 20mg tablet PO SCH (08:26)
[2023-02-08] MEDS: aspirin 81mg tab.chew PO SCH (08:26)
[2023-02-08] MEDS: docusate sod 100mg capsule PO SCH ×2 (08:27→20:49)
[2023-02-08] MEDS: insulin Lispro (HumaLOG) vial - multi-dose SQ SCH ×3 (08:30→19:09)
[2023-02-08 08:40] VITALS: BP 118/65
[2023-02-08] MEDS: lisinopril 20mg tablet PO SCH (08:40)
[2023-02-08] MEDS: carVEDilol 3.125mg tablet PO SCH ×2 (08:40→20:48)
[2023-02-08] MEDS: heparin, porcine 5000 units/ml vial SQ SCH ×2 (08:41→20:49)
--- NOTE | 2023-02-08 09:05 | NUR ---
Message: Deni Casas: PICC nurse requesting consent to place PICC, can you please sign when you have a chance. EUGENE Enriquez [id number] Custom Responses: promotional table spacer Transaction number: [id number]
[2023-02-08] MEDS: VANCOmycin 1250MG/NS 250ml Bag 250 ML IV SCH ×2 (10:26→22:18)
--- NOTE | 2023-02-08 12:36 | NUR ---
Patient requesting different pain medication. MD notified, received new order for percocet 5 PRN, patient notified and stated, "I would rather just continue taking the norco, I have decreased receptors because of all the drugs I used to do, but it still hurts."
[2023-02-08 14:00] VITALS: BP 117/70
[2023-02-08] MEDS: magnesium hydroxide 30ml (MOM) UD suspension PO PRN (14:24)
--- NOTE | 2023-02-08 14:50 | NUR ---
Student Medication Administration: For this medication-pass time frame, all medication were reviewed, dispensed, administered and documented per hospital policy by jaime owens student nurse and nadya winkler rn.
--- NOTE | 2023-02-08 15:59 | NUR ---
Student Medication Administration: For this medication-pass time frame, all medication were reviewed, dispensed, administered and documented per hospital policy by Mynor Sood student with Krish Dominguez instructor RN MSN.
--- NOTE | 2023-02-08 17:17 | NUR ---
SECURITY INSTALLATION SALES TECHNICIAN documentation: I have reviewed and agree with all interventions, assessments performed and documented by Zoe Smalls LVN.
[2023-02-08 18:00] VITALS: BP 125/61
--- NOTE | 2023-02-08 18:32 | NUR ---
Problems reprioritized. Patient report given, questions answered & plan of care reviewed with Kavita MAY.
[2023-02-08] MEDS: clindamycin 150mg capsule PO SCH (20:56)
[2023-02-08] MEDS: insulin glargine (Lantus) pen - multi-dose SQ SCH (21:00)
[2023-02-08 22:00] VITALS: BP 119/59
[2023-02-09] MEDS: clindamycin 150mg capsule PO SCH ×4 (01:55→20:23)
[2023-02-09] MEDS: HYDROcodone/acetaminophen 10/325mg tab PO PRN ×4 (01:55→21:24)
[2023-02-09] MEDS: cefepime 1GM/NS ADD-VANTAGE 100 ML IV SCH ×3 (05:33→21:26)
--- NOTE | 2023-02-09 06:28 | NUR ---
Problems reprioritized. Patient report given, questions answered & plan of care reviewed with LALO Chilel.
--- NOTE | 2023-02-09 06:52 | NUR ---
Patient in room DEEP 356. I have received report from Kavita MAY and had the opportunity to ask questions and assume patient care.
[2023-02-09 07:08] VITALS: BP 101/59
[2023-02-09] MEDS: K and/or MAG REPLACEMENT MC SCH ×2 (08:00→20:00)
[2023-02-09] MEDS: atorvastatin 20mg tablet PO SCH (08:26)
[2023-02-09] MEDS: carVEDilol 3.125mg tablet PO SCH ×2 (08:26→20:23)
[2023-02-09] MEDS: docusate sod 100mg capsule PO SCH ×2 (08:26→20:23)
[2023-02-09] MEDS: FLUoxetine 20mg capsule PO SCH (08:26)
[2023-02-09] MEDS: aspirin 81mg tab.chew PO SCH (08:26)
[2023-02-09] MEDS: heparin, porcine 5000 units/ml vial SQ SCH ×2 (08:27→20:24)
[2023-02-09] MEDS: lisinopril 20mg tablet PO SCH (08:27)
[2023-02-09] MEDS: insulin Lispro (HumaLOG) vial - multi-dose SQ SCH ×3 (08:37→18:58)
[2023-02-09] MEDS: normal saline 1000ml 1,000 ML IV SCH ×2 (09:00→17:45)
[2023-02-09] MEDS: VANCOmycin 1250MG/NS 250ml Bag 250 ML IV SCH ×2 (10:09→22:10)
[2023-02-09] MEDS: oxyCODONE/APAP 5-325mg tablet PO PRN (12:11)
[2023-02-09 12:56] VITALS: BP 123/53
[2023-02-09 18:00] VITALS: BP 122/60
--- NOTE | 2023-02-09 18:15 | NUR ---
Problems reprioritized. Patient report given, questions answered & plan of care reviewed with Kavita MAY.
[2023-02-09] MEDS: insulin glargine (Lantus) pen - multi-dose SQ SCH (21:22)
[2023-02-09 22:00] VITALS: BP 134/66
[2023-02-10] MEDS: clindamycin 150mg capsule PO SCH ×4 (01:59→19:40)
[2023-02-10] MEDS: HYDROcodone/acetaminophen 10/325mg tab PO PRN ×4 (03:38→22:07)
[2023-02-10] MEDS: normal saline 1000ml 1,000 ML IV SCH ×2 (05:14→16:34)
[2023-02-10] MEDS: cefepime 1GM/NS ADD-VANTAGE 100 ML IV SCH ×3 (05:16→22:08)
--- NOTE | 2023-02-10 06:22 | NUR ---
Problems reprioritized. Patient report given, questions answered & plan of care reviewed with LALO Chilel.
--- NOTE | 2023-02-10 06:49 | NUR ---
Patient in room DEEP 356. I have received report from Kavita MAY and had the opportunity to ask questions and assume patient care.
[2023-02-10 07:03] VITALS: BP 109/53
[2023-02-10] MEDS: atorvastatin 20mg tablet PO SCH (07:40)
[2023-02-10] MEDS: FLUoxetine 20mg capsule PO SCH (07:40)
[2023-02-10] MEDS: aspirin 81mg tab.chew PO SCH (07:40)
[2023-02-10] MEDS: docusate sod 100mg capsule PO SCH (07:40)
[2023-02-10] MEDS: carVEDilol 3.125mg tablet PO SCH ×2 (07:40→19:40)
[2023-02-10] MEDS: lisinopril 20mg tablet PO SCH (07:41)
[2023-02-10] MEDS: heparin, porcine 5000 units/ml vial SQ SCH ×2 (07:41→19:41)
[2023-02-10] MEDS: K and/or MAG REPLACEMENT MC SCH ×2 (07:47→20:00)
[2023-02-10] MEDS: VANCOmycin 1250MG/NS 250ml Bag 250 ML IV SCH ×2 (10:29→22:08)
[2023-02-10 11:59] VITALS: BP 130/62
[2023-02-10] MEDS: insulin Lispro (HumaLOG) vial - multi-dose SQ SCH (13:44)
[2023-02-10] MEDS ORDERED: bisacodyl 5mg tablet.DR PO PRN (13:50)
[2023-02-10] MEDS: sennosides/docusate sodium tablet PO SCH ×2 (14:22→19:40)
[2023-02-10 15:39] LABS: BASOPHILS # (AUTO) 0.1 X10'3 (0-0.2); BASOPHILS % (AUTO) 0.6 % (0-1); EOSINOPHILS # (AUTO) 0.1 X10'3 (0-0.9); EOSINOPHILS % (AUTO) 1.2 % (0-6); HEMATOCRIT 27.9 % (42.0-52.0); HEMOGLOBIN 9.3 g/dl (14.0-17.9); LYMPHOCYTES # (AUTO) 1.2 X10'3 (1.1-4.8); LYMPHOCYTES % (AUTO) 14.2 % (21-51); MEAN CORPUSCULAR HEMOGLOBIN 29.9 PG (27.0-31.0); MEAN CORPUSCULAR HGB CONC 33.1 g/dL (33.0-36.5); MEAN CORPUSCULAR VOLUME 90.1 FL (78-98); MEAN PLATELET VOLUME 6.4 FL (7.4-10.4); MONOCYTES # (AUTO) 0.9 X10'3 (0-0.9); NEUTROPHILS # (AUTO) 6.3 X10'3 (1.8-7.7); PLATELET COUNT 532 X10'3 (140-440); RED CELL DISTRIBUTION WIDTH 13.9 % (11.5-14.5); WHITE BLOOD COUNT 8.5 X10'3 (4.5-11.0)
[2023-02-10 15:55] LABS: ALANINE AMINOTRANSFERASE 12 U/L (12-78); ALBUMIN 1.8 G/DL (3.4-5.0); ALBUMIN/GLOBULIN RATIO 0.3 (1.1-1.5); ALKALINE PHOSPHATASE 50 IU/L (46-116); ANION GAP 7 (8-16); ASPARTATE AMINO TRANSFERASE 19 U/L (10-37); BILIRUBIN,TOTAL 0.2 MG/DL (0.1-1.0); BLOOD UREA NITROGEN 9 MG/DL (7-18); BUN/CREATININE RATIO 10.5 (5.4-32.0); CALCIUM 8.7 MG/DL (8.5-10.1); CHLORIDE 104 MMOL/L (99-107); CREATININE 0.86 MG/DL (0.60-1.10); GLUCOSE 120 MG/DL (70-104); POTASSIUM 4.2 MMOL/L (3.5-5.1); SODIUM 138 MMOL/L (135-145); eGFR > 90 ML/MIN
[2023-02-10 18:00] VITALS: BP 132/75
--- NOTE | 2023-02-10 18:23 | NUR ---
Problems reprioritized. Patient report given, questions answered & plan of care reviewed with Kam DIAZ.
[2023-02-10] MEDS: insulin glargine (Lantus) pen - multi-dose SQ SCH (20:51)
[2023-02-10 22:00] VITALS: BP 103/56
--- NOTE | 2023-02-11 01:48 | NUR ---
AGREE WITH CIGAR HEAD STRINGER PHYSICAL ASSESSMENT CHARTED
[2023-02-11] MEDS: clindamycin 150mg capsule PO SCH ×3 (01:56→14:47)
[2023-02-11] MEDS: normal saline 1000ml 1,000 ML IV SCH ×2 (02:03→11:19)
[2023-02-11] MEDS: HYDROcodone/acetaminophen 10/325mg tab PO PRN ×2 (05:10→11:23)
[2023-02-11] MEDS: cefepime 1GM/NS ADD-VANTAGE 100 ML IV SCH ×2 (05:38→14:47)
[2023-02-11 07:02] VITALS: BP 143/75
[2023-02-11] MEDS: magnesium hydroxide 30ml (MOM) UD suspension PO PRN (07:36)
[2023-02-11] MEDS: FLUoxetine 20mg capsule PO SCH (07:36)
[2023-02-11] MEDS: sennosides/docusate sodium tablet PO SCH (07:36)
[2023-02-11] MEDS: oxyCODONE/APAP 5-325mg tablet PO PRN (07:37)
[2023-02-11] MEDS: lisinopril 20mg tablet PO SCH (07:38)
[2023-02-11] MEDS: carVEDilol 3.125mg tablet PO SCH (07:38)
[2023-02-11] MEDS: heparin, porcine 5000 units/ml vial SQ SCH (07:39)
[2023-02-11] MEDS: K and/or MAG REPLACEMENT MC SCH (08:00)
[2023-02-11] MEDS: aspirin 81mg tab.chew PO SCH (08:48)
[2023-02-11] MEDS: atorvastatin 20mg tablet PO SCH (08:48)
[2023-02-11] MEDS: insulin Lispro (HumaLOG) vial - multi-dose SQ SCH (09:00)
[2023-02-11] MEDS ORDERED: VANCOMYCIN LEVEL IV ONE (09:30)
[2023-02-11] MEDS: VANCOmycin 1250MG/NS 250ml Bag 250 ML IV SCH (10:52)
[2023-02-11 11:48] VITALS: BP 181/94
[2023-02-11] MEDS ORDERED: LANC1COM12 (11:54)
[2023-02-11] MEDS ORDERED: BLOO1EAC70 MC (11:54)
[2023-02-11] MEDS ORDERED: LANC-854 TOP (11:54)
[2023-02-11] MEDS ORDERED: LEVO750T68 PO (11:54)
[2023-02-11] MEDS ORDERED: LANTUS SQ (11:54)
[2023-02-11] MEDS ORDERED: METF-436 PO (11:54)
[2023-02-11] MEDS ORDERED: METR-159 PO (11:54)
--- NOTE | 2023-02-11 12:48 | NUR ---
PAGER ID: [phone] MESSAGE: Deni Carrington 356A Please call me regarding wound of pt. and discharge clarification. Venita [phone]
--- NOTE | 2023-02-11 12:48 | NUR ---
Discharge wound pictures taken.
--- NOTE | 2023-02-11 12:55 | NUR ---
After doing wound care, notified hospitalist and surgeon. Surgeon states to call wound care to take care of tissue. Called wound care and they state "that's what the pt. looks like. Pt has a clot in his foot and the MD knows. He will need to f/u with OP wound care." Surgeon ok with discharge.
--- NOTE | 2023-02-11 13:03 | NUR ---
DM Consult: ROXANNE haro/cam[place] MAY pt previously educated by ROXANNE this admit; see prior ROXANNE notes. Addendum: 02/11/23 at [address] Amended: Links added.
--- NOTE | 2023-02-11 13:19 | NUR ---
Pt. states he has no PCP bbut goes to [facility]. Requested for him to call and make an appointment for f/u on diabetes.
--- NOTE | 2023-02-11 14:00 | NUR ---
Reviewed discharge paperwork with pt. Pt. agrees to f/u at [facility], although he arrived late before and his appointment was taken by someone else. He has transportation. Pt. states he is very aware of diabetic management however his A1C is over 12. He said this was because he ran out of insulin. Pt. left with antibiotic, pain medication, and diabetic management orders. He gathered all of his own supplies. His wound care was completed and pictures taken today. Pt states his girlfriend is going to do his wound care and that she is a pro because she does his animals wounds as well. Pt. advised to keep animals away from his wounds. Pt. given lots of wound care supplies and instruction although GF could not be present. Pt. had the opportunity to ask questions. He has an appointment set up by FRED with OP wound care at 0930 on February 14. He is aware. Wheeled down to his transport and discharged.
--- NOTE | 2023-02-11 14:59 | NUR ---
PAGER ID: [phone] MESSAGE: Deni Carrington 356A Pt. will not discharge w/o pain medication for his amputated toe and foot wound. Can I please have a prescription? Thanks Venita [phone]
--- NOTE | 2023-02-11 15:12 | NUR ---
PAGER ID: [phone] MESSAGE: Deni VizcainoA has been receiving 2 norco q 6 h. Can I please have a prescription for pain? Venita [phone]
[2023-02-11] MEDS ORDERED: HYDR-3965 PO (15:29)
--- NOTE | 2023-02-11 16:54 | NUR ---
PAGER ID: [phone] MESSAGE: Deni Carrington 356A Everything needs an order sorry! pt. requesting a boot for his foot. Can he have one? Venita [phone]
== END 2023-02-11 17:50 | disposition home or self-care (01) | DRG 314 ==
LOC: ER 19:47 → ED HOLD 23:05 → SUR 3N 02-04 20:14
PROVIDERS: ADMIT Family Medicine; ATTEND Family Medicine
PROC: B4201ZZ Computerized Tomography (CT Scan) of Abdominal Aorta using Low Osmolar Contrast (ICD-10-PCS; 2023-02-04)
PROC: B4241ZZ Computerized Tomography (CT Scan) of Superior Mesenteric Artery using Low Osmolar Contrast (ICD-10-PCS; 2023-02-04)
PROC: B4281ZZ Computerized Tomography (CT Scan) of Bilateral Renal Arteries using Low Osmolar Contrast (ICD-10-PCS; 2023-02-04)
PROC: B42C1ZZ Computerized Tomography (CT Scan) of Pelvic Arteries using Low Osmolar Contrast (ICD-10-PCS; 2023-02-04)
PROC: B42H1ZZ Computerized Tomography (CT Scan) of Bilateral Lower Extremity Arteries using Low Osmolar Contrast (ICD-10-PCS; 2023-02-04)
PROC: B4211ZZ Computerized Tomography (CT Scan) of Celiac Artery using Low Osmolar Contrast (ICD-10-PCS; 2023-02-04)
PROC: 3E0234Z Introduction of Serum, Toxoid and Vaccine into Muscle, Percutaneous Approach (ICD-10-PCS; 2023-02-06)
PROC: 3E02340 Introduction of Influenza Vaccine into Muscle, Percutaneous Approach (ICD-10-PCS; 2023-02-06)
PROC: 0Y6T0Z0 Detachment at Right 3rd Toe, Complete, Open Approach (ICD-10-PCS; principal; 2023-02-06 13:03)
PROC: 02HV33Z Insertion of Infusion Device into Superior Vena Cava, Percutaneous Approach (ICD-10-PCS; 2023-02-08)
PROC: B548ZZA Ultrasonography of Superior Vena Cava, Guidance (ICD-10-PCS; 2023-02-08)
DX: E11.52 Type 2 diabetes mellitus with diabetic peripheral angiopathy with gangrene (principal); E11.628 Type 2 diabetes mellitus with other skin complications; I70.261 Atherosclerosis of native arteries of extremities with gangrene, right leg; M86.8X7 Other osteomyelitis, ankle and foot; L03.115 Cellulitis of right lower limb; B96.4 Proteus (mirabilis) (morganii) as the cause of diseases classified elsewhere; B19.20 Unspecified viral hepatitis C without hepatic coma; E11.65 Type 2 diabetes mellitus with hyperglycemia; Z20.822 Contact with and (suspected) exposure to COVID-19; E11.69 Type 2 diabetes mellitus with other specified complication; E66.01 Morbid (severe) obesity due to excess calories; E78.5 Hyperlipidemia, unspecified; F17.210 Nicotine dependence, cigarettes, uncomplicated; F32.A Depression, unspecified; G89.29 Other chronic pain; M54.9 Dorsalgia, unspecified; I10 Essential (primary) hypertension; Z68.37 Body mass index [BMI] 37.0-37.9, adult; Z83.3 Family history of diabetes mellitus; Z91.199 Patient's noncompliance with other medical treatment and regimen due to unspecified reason; Z23 Encounter for immunization; Z56.0 Unemployment, unspecified; Z71.6 Tobacco abuse counseling
CPT/HCPCS: 36415; 36569; 71045; 73630; 73720; 75635; 76942; 80053; 80061; 80202; 80305; 81001; 82948; 83036; 83605; 83735; 84145; 85025; 85610; 85730; 86704; 86705; 86706; 87040; 87070; 87075; 87077; 87081; 87102; 87186; 87340; 87811; 90686; 90732; 93005; 93922; 93926; 99285; A4615; A4618; A6209; A6222; A6223; A6250; A6258; A6266; A6402; A6446; A6449; A7000; A9575; C1751; G0378; J0692; J1644; J1815; J2175; J2250; J2270; J2405; J2704; J3010; J3370; J3490; J7030; J7120; Q9967; S0020

== ENCOUNTER 2023-02-13 11:02 | Emergency (ER) | payer MEDICAID ==
[~2023-02-13] VITALS: Ht 177.8 cm; Wt 109.1 kg
[~2023-02-13 11:02] MED LIST: BLOO1EAC70 MC; HYDR-3965 PO; LANC-854 TOP; LANC1COM12; LANTUS SQ; LEVO750T68 PO; METF-436 PO; METR-159 PO
[2023-02-13 11:11] VITALS: BP 152/93
== END 2023-02-13 12:47 | disposition home or self-care (01) ==
LOC: ER 11:02
DX: T88.9XXA Complication of surgical and medical care, unspecified, initial encounter (principal); M79.644 Pain in right finger(s); Z48.00 Encounter for change or removal of nonsurgical wound dressing; E11.9 Type 2 diabetes mellitus without complications; G89.29 Other chronic pain; M54.9 Dorsalgia, unspecified; F32.A Depression, unspecified; F12.10 Cannabis abuse, uncomplicated; Z79.899 Other long term (current) drug therapy; Z79.1 Long term (current) use of non-steroidal anti-inflammatories (NSAID)
CPT/HCPCS: 99281

== ENCOUNTER 2023-02-21 18:27 | Inpatient (IN) | payer MEDICAID ==
[~2023-02-21] VITALS: Ht 177.8 cm; Wt 109.1 kg
[2023-02-21 19:19] LABS: BASOPHILS % (AUTO) 0.5 % (0-1); EOSINOPHILS % (AUTO) 0.4 % (0-6); HEMATOCRIT 32.4 % (42.0-52.0); LYMPHOCYTES # (AUTO) 1.4 X10'3 (1.1-4.8); LYMPHOCYTES % (AUTO) 17.3 % (21-51); MEAN CORPUSCULAR HEMOGLOBIN 31.1 PG (27.0-31.0); MEAN CORPUSCULAR HGB CONC 33.9 g/dL (33.0-36.5); MEAN CORPUSCULAR VOLUME 91.6 FL (78-98); MEAN PLATELET VOLUME 6.8 FL (7.4-10.4); MONOCYTES # (AUTO) 0.6 X10'3 (0-0.9); MONOCYTES % (AUTO) 7.5 % (2-12); NEUTROPHILS % (AUTO) 74.3 % (42-75); PLATELET COUNT 527 X10'3 (140-440); RED BLOOD COUNT 3.54 X10'6 (4.70-6.10); RED CELL DISTRIBUTION WIDTH 14.3 % (11.5-14.5); WHITE BLOOD COUNT 8.1 X10'3 (4.5-11.0)
[2023-02-21 19:35] LABS: ALANINE AMINOTRANSFERASE 13 U/L (12-78); ALBUMIN 2.6 G/DL (3.4-5.0); ALBUMIN/GLOBULIN RATIO 0.4 (1.1-1.5); ALKALINE PHOSPHATASE 64 IU/L (46-116); ANION GAP 9 (8-16); ASPARTATE AMINO TRANSFERASE 16 U/L (10-37); BILIRUBIN,TOTAL 0.2 MG/DL (0.1-1.0); BLOOD UREA NITROGEN 19 MG/DL (7-18); BUN/CREATININE RATIO 13.8 (10.0-20.0); CALCIUM 8.9 MG/DL (8.5-10.1); CHLORIDE 93 MMOL/L (99-107); CREATININE 1.38 MG/DL (0.60-1.10); POTASSIUM 4.7 MMOL/L (3.5-5.1); SODIUM 130 MMOL/L (135-145); TOTAL CARBON DIOXIDE 28.5 MMOL/L (24-32); TOTAL PROTEIN 9.3 G/DL (6.4-8.2); eGFR 57 ML/MIN
[2023-02-21 19:39] LABS: GLUCOSE 616 MG/DL (70-104)
[2023-02-22] MEDS ORDERED: metroNIDAZOLE-Flagyl 500mg/NS 100 ML IV STA (00:52)
[2023-02-22] MEDS ORDERED: insulin regular, human 10 units/0.1 ml syringe IV ONE (00:55)
[2023-02-22] MEDS ORDERED: levoFLOXACIN-Levaquin 500mg/D5 100 ML IV ONE (00:55)
[2023-02-22] MEDS ORDERED: normal saline 1000ml 1,000 ML IV ONE (00:55)
[2023-02-22 01:05] LABS: CLARITY,URINE CLEAR (Clear); COLOR,URINE YELLOW (Yellow); GLUCOSE, URINE >=1000 mg/dl (Neg); KETONES,URINE NEGATIVE (Neg); LEUKOCYTE ESTERASE ,URINE NEGATIVE (Neg); NITRITES, URINE NEGATIVE (Neg); OCCULT BLOOD,URINE TRACE-INTACT (Neg); PH,URINE 5.5 (4.8-8.0); PROTEIN,URINE 100 mg/dl (Neg); UROBILINOGEN,URINE 0.2 E.U/dL (0.2-1.0)
[2023-02-22 01:10] LABS: SQUAMOUS EPITHELIAL CELL,UR FEW /LPF (FEW); UA COLLECTION TYPE CLN CATCH MIDSTREAM
[2023-02-22 01:11] LABS: BACTERIA,URINE NONE SEEN /HPF (Neg); WBC,URINE 0-4 /HPF (0-4)
[2023-02-22 01:13] LABS: URINE AMPHETAMINE SCREEN NEGATIVE (Neg); URINE BARBITUATE SCREEN NEGATIVE (Neg); URINE BENZODIAZEPINES SCREEN NEGATIVE (Neg); URINE CANNABINOID SCREEN NEGATIVE (Neg); URINE COCAINE SCREEN NEGATIVE (Neg); URINE METHADONE SCREEN NEGATIVE (Neg); URINE OPIATE SCREEN NEGATIVE (Neg); URINE PHENCYCLIDINE SCREEN NEGATIVE (Neg)
[2023-02-22] MEDS ORDERED: HYDROmorphone inj. 0.5 MG/0.5 ML DISP.SYRIN IV PRN (02:35)
[2023-02-22] MEDS ORDERED: ondansetron/PF 4mg/2ml inj IV PRN (02:35)
[2023-02-22] MEDS ORDERED: bisacodyl 10mg suppository rectal RC PRN (02:35)
[2023-02-22] MEDS ORDERED: ondansetron 4mg rapidly disintigrating tab PO PRN (02:35)
[2023-02-22] MEDS ORDERED: acetaminophen 325mg tablet PO PRN ×2 (02:35)
[2023-02-22] MEDS ORDERED: magnesium hydroxide 30ml (MOM) UD suspension PO PRN (02:35)
[2023-02-22] MEDS ORDERED: morphine 2 MG/ML inj. syringe IV PRN (02:35)
[2023-02-22] MEDS ORDERED: mag hydrox/Alum hydrox/simeth 30ml oral suspension PO PRN (02:35)
[2023-02-22] MEDS ORDERED: HYDROcodone/acetaminophen 5mg/325mg tablet PO PRN (02:35)
[2023-02-22] MEDS ORDERED: diphenhydrAMINE 50 mg/ml inj IV PRN (02:35)
[2023-02-22] MEDS ORDERED: diphenhydrAMINE 25mg capsule PO PRN (02:35)
[2023-02-22] MEDS ORDERED: Insulin Reg/NS 100units/100mL 100 ML IV SCH (02:45)
[2023-02-22] MEDS ORDERED: glucagon, human recombinant 1mg kit SUBCUT PRN ×2 (02:45→04:50)
[2023-02-22] MEDS ORDERED: normal saline 1000ml 1,000 ML IVB ONE (02:45)
[2023-02-22] MEDS ORDERED: MESSAGE TO PHARMACY PO ONE ×2 (02:45→04:50)
[2023-02-22] MEDS ORDERED: dextrose 50%-water 50ml dispensing syringe IV PRN ×3 (02:45)
[2023-02-22] MEDS ORDERED: DEXTROSE 15 GM of carb/4 tabs (each vial/BOTTLE has 4 tablets) PO PRN ×4 (02:45→04:50)
[2023-02-22] MEDS: normal saline 1000ml 1,000 ML IV SCH ×3 (02:46→21:51)
[2023-02-22 04:19] LABS: BASOPHILS # (AUTO) 0.1 X10'3 (0-0.2); EOSINOPHILS # (AUTO) 0.1 X10'3 (0-0.9); EOSINOPHILS % (AUTO) 0.9 % (0-6); HEMATOCRIT 26.7 % (42.0-52.0); HEMOGLOBIN 9.2 g/dl (14.0-17.9); LYMPHOCYTES # (AUTO) 2.7 X10'3 (1.1-4.8); LYMPHOCYTES % (AUTO) 33.8 % (21-51); MEAN CORPUSCULAR HEMOGLOBIN 32.1 PG (27.0-31.0); MEAN CORPUSCULAR HGB CONC 34.6 g/dL (33.0-36.5); MEAN CORPUSCULAR VOLUME 92.9 FL (78-98); MEAN PLATELET VOLUME 6.4 FL (7.4-10.4); MONOCYTES # (AUTO) 0.7 X10'3 (0-0.9); MONOCYTES % (AUTO) 9.2 % (2-12); NEUTROPHILS # (AUTO) 4.4 X10'3 (1.8-7.7); NEUTROPHILS % (AUTO) 55.1 % (42-75); PLATELET COUNT 462 X10'3 (140-440); RED BLOOD COUNT 2.87 X10'6 (4.70-6.10); RED CELL DISTRIBUTION WIDTH 14.3 % (11.5-14.5)
[2023-02-22] MEDS ORDERED: HYDR-3965 PO (04:24)
[2023-02-22] MEDS ORDERED: METR-159 PO (04:24)
[2023-02-22] MEDS ORDERED: METF-436 PO (04:24)
[2023-02-22] MEDS ORDERED: LANTUS SQ (04:24)
[2023-02-22] MEDS ORDERED: INSU100V11 SQ (04:24)
[2023-02-22] MEDS ORDERED: LEVO750T68 PO (04:24)
[2023-02-22 04:29] LABS: APTT 33 SECONDS (22-32)
[2023-02-22 04:38] LABS: ANION GAP 7 (8-16); BLOOD UREA NITROGEN 14 MG/DL (7-18); BUN/CREATININE RATIO 19.2 (10.0-20.0); C-REACTIVE PROTEIN 1.19 MG/DL (0.0-0.5); CALCIUM 7.3 MG/DL (8.5-10.1); CHLORIDE 106 MMOL/L (99-107); CREATINE KINASE 39 U/L (39-308); CREATININE 0.73 MG/DL (0.60-1.10); GLUCOSE 197 MG/DL (70-104); LIPASE < 50 U/L (73-393); MAGNESIUM 1.5 MG/DL (1.5-2.4); PHOSPHORUS 2.9 MG/DL (2.3-4.5); POTASSIUM 3.3 MMOL/L (3.5-5.1); SODIUM 137 MMOL/L (135-145); TOTAL CARBON DIOXIDE 24.4 MMOL/L (24-32); eGFR > 90 ML/MIN
[2023-02-22] MEDS ORDERED: insulin Lispro (HumaLOG) vial - multi-dose SQ SCH (04:50)
[2023-02-22] MEDS ORDERED: magnesium Cl slow-release 64mg tablet PO PRN (05:05)
[2023-02-22] MEDS ORDERED: potassium Cl 20 mEq SR tablet PO PRN (05:05)
[2023-02-22] MEDS ORDERED: magnesium 4gm in 100ml NS 100 ML IV PRN (05:05)
[2023-02-22] MEDS ORDERED: potassium Cl 40MEQ/1/2NS 520ml 520 ML IV PRN (05:05)
[2023-02-22] MEDS: potassium Cl 20 mEq SR tablet PO PRN ×3 (05:11→16:08)
[2023-02-22] MEDS: HYDROcodone/acetaminophen 10/325mg tab PO PRN ×2 (05:11→15:03)
--- NOTE | 2023-02-22 07:04 | NUR ---
recd report from isabel sorensen in ER
--- NOTE | 2023-02-22 07:05 | NUR ---
Report given to LALO He, pt to go to room 344A
[2023-02-22] MEDS: K and/or MAG REPLACEMENT MC SCH ×2 (08:00→19:09)
[2023-02-22] MEDS: nicotine 21mg patch - 24 hr TD SCH (09:03)
[2023-02-22] MEDS: docusate sod 100mg capsule PO SCH ×2 (09:03→19:42)
[2023-02-22] MEDS: pantoprazole 40mg Tablet.DR PO SCH (09:03)
[2023-02-22 10:00] VITALS: BP 149/85
--- NOTE | 2023-02-22 10:29 | NUR ---
Received order for consult. Met with patient in regards to substance use and to see if patient was interested in resources for treatment options. Patient declined resources.
[2023-02-22] MEDS: metroNIDAZOLE-Flagyl 500mg/NS 100 ML IV SCH ×2 (11:41→23:51)
[2023-02-22] MEDS: morphine 2 MG/ML inj. syringe IV PRN ×3 (13:30→21:45)
[2023-02-22] MEDS: insulin Lispro (HumaLOG) vial - multi-dose SQ SCH ×3 (13:32→21:45)
[2023-02-22 18:00] VITALS: BP 122/65
--- NOTE | 2023-02-22 18:21 | NUR ---
Problems reprioritized. Patient report given, questions answered & plan of care reviewed with PRUDENCE RN.
--- NOTE | 2023-02-22 18:49 | NUR ---
Patient in room DEEP 344. I have received report from KEVIN MAY and had the opportunity to ask questions and assume patient care.
[2023-02-22] MEDS ORDERED: temazepam 15mg capsule PO PRN (21:00)
[2023-02-22] MEDS ORDERED: insulin glargine (Lantus) pen - multi-dose SQ SCH (21:00)
[2023-02-22] MEDS: insulin glargine (Lantus) pen - multi-dose SQ SCH (21:44)
[2023-02-22 22:00] VITALS: BP 120/77
[2023-02-23] VITALS (26 sets, daily range): BP systolic 128–182; BP diastolic 62–113
[2023-02-23] MEDS ORDERED: levoFLOXACIN-Levaquin 750MG/D5 150 ML IV SCH
[2023-02-23] MEDS: morphine 2 MG/ML inj. syringe IV PRN (02:38)
[2023-02-23] MEDS: HYDROcodone/acetaminophen 10/325mg tab PO PRN (05:29)
--- NOTE | 2023-02-23 06:30 | NUR ---
Patient in room DEEP 344. I have received report from pedro MAY and had the opportunity to ask questions and assume patient care.
--- NOTE | 2023-02-23 06:42 | NUR ---
Problems reprioritized. Patient report given, questions answered & plan of care reviewed with PROMISE MAY.
[2023-02-23 06:59] LABS: BASOPHILS % (AUTO) 0.5 % (0-1); EOSINOPHILS # (AUTO) 0.1 X10'3 (0-0.9); EOSINOPHILS % (AUTO) 1.5 % (0-6); HEMATOCRIT 30.2 % (42.0-52.0); HEMOGLOBIN 10.3 g/dl (14.0-17.9); LYMPHOCYTES # (AUTO) 1.8 X10'3 (1.1-4.8); LYMPHOCYTES % (AUTO) 26.7 % (21-51); MEAN CORPUSCULAR HEMOGLOBIN 30.8 PG (27.0-31.0); MEAN CORPUSCULAR HGB CONC 33.9 g/dL (33.0-36.5); MEAN CORPUSCULAR VOLUME 90.8 FL (78-98); MEAN PLATELET VOLUME 6.7 FL (7.4-10.4); MONOCYTES # (AUTO) 0.6 X10'3 (0-0.9); NEUTROPHILS # (AUTO) 4.2 X10'3 (1.8-7.7); NEUTROPHILS % (AUTO) 62.3 % (42-75); PLATELET COUNT 421 X10'3 (140-440); RED BLOOD COUNT 3.33 X10'6 (4.70-6.10); RED CELL DISTRIBUTION WIDTH 14.4 % (11.5-14.5); WHITE BLOOD COUNT 6.8 X10'3 (4.5-11.0)
[2023-02-23] MEDS ORDERED: BUPIVAcaine/PF 2.5 mg/ml (0.25%) 30ml vial ONE (07:09)
[2023-02-23 07:17] LABS: ALANINE AMINOTRANSFERASE 10 U/L (12-78); ALBUMIN 2.1 G/DL (3.4-5.0); ALBUMIN/GLOBULIN RATIO 0.4 (1.1-1.5); ALKALINE PHOSPHATASE 49 IU/L (46-116); ANION GAP 7 (8-16); ASPARTATE AMINO TRANSFERASE 16 U/L (10-37); BILIRUBIN,TOTAL 0.2 MG/DL (0.1-1.0); BLOOD UREA NITROGEN 15 MG/DL (7-18); BUN/CREATININE RATIO 16.9 (10.0-20.0); CALCIUM 8.4 MG/DL (8.5-10.1); CHLORIDE 101 MMOL/L (99-107); CREATININE 0.89 MG/DL (0.60-1.10); GLUCOSE 305 MG/DL (70-104); POTASSIUM 4.4 MMOL/L (3.5-5.1); SODIUM 136 MMOL/L (135-145); TOTAL CARBON DIOXIDE 28.1 MMOL/L (24-32); TOTAL PROTEIN 7.6 G/DL (6.4-8.2); eGFR > 90 ML/MIN
[2023-02-23] MEDS: K and/or MAG REPLACEMENT MC SCH ×2 (08:00→19:52)
[2023-02-23] MEDS ORDERED: midazolam 1 mg/ML 2ml injection ONE (08:02)
[2023-02-23] MEDS ORDERED: sevoflurane 250ml liquid IH ONE (08:02)
[2023-02-23] MEDS ORDERED: fentaNYL/PF 50MCG/1 ML 2ML syringe ONE ×2 (08:02→08:58)
[2023-02-23] MEDS ORDERED: propofol inj 20 ML IV ONE (08:02)
[2023-02-23] MEDS: normal saline 1000ml 1,000 ML IV SCH ×2 (08:35→18:35)
[2023-02-23] MEDS ORDERED: acetaminophen 1,000mg/100ml IV 100 ML IV PRN (09:25)
[2023-02-23] MEDS ORDERED: morphine 2 MG/ML inj. syringe IV PRN (09:25)
[2023-02-23] MEDS ORDERED: ondansetron/PF 4mg/2ml inj IV PRN (09:25)
[2023-02-23] MEDS ORDERED: ringers solution, lacted 1,000 ML IV SCH (09:25)
[2023-02-23] MEDS ORDERED: meperidine/PF 25mg/ml syringe IV PRN ×2 (09:25)
[2023-02-23] MEDS ORDERED: hydrALAZINE 20mg/ml inj. IV PRN (09:25)
--- NOTE | 2023-02-23 09:35 | NUR ---
Per EMR pt with T2DM, poorly controlled with A1c >12.0%. Pt s/p right TMA today. Pt recently admitted and seen by RD 02/05 for written and verbal protein and DM nutrition therapy educations. RD contact information provided at that time. Noted pt documented with 100% PO intake since admit. Pt previously agreed to double protein with meals for satiety, d/w dietary to resume double protein this admit. Will continue to follow. Addendum: 02/23/23 at [address] Amended: Links added.
--- NOTE | 2023-02-23 09:55 | NUR ---
Received from OR via , accompanied by Anesthesiologist GERALDINE AND OR NURSE and report given by Anesthesiolgist. PT IS AWAKE AND C/O PAIN. RT IJ WITH TRIPLE LUMEN. RT FOOT WITH CAST AND ALEXEI WRAP; CDI. VSS; SLIGHT ELEVATED SBP. Addendum: 02/23/23 at 1055 by Roopa Hart RN Amended: Links added.
[2023-02-23] MEDS: meperidine/PF 25mg/ml syringe IV PRN ×2 (10:10→11:44)
[2023-02-23] MEDS: morphine 4 MG/ML inj SYRINge IV PRN ×6 (10:16→12:00)
[2023-02-23] MEDS: labetalol 20mg/4ml (5mg/ml) syringe IV PRN ×2 (10:49→11:09)
[2023-02-23] MEDS: HYDROmorph/NS 0.2 mg/ml PCA 100 ML IV SCH ×7 (12:20→23:00)
--- NOTE | 2023-02-23 12:25 | NUR ---
PATIENT TAKEN TO SURGICAL FLOOR, BROUGHT BACK TO ROOM WHERE ALL BELONGINGS REMAINED AND HOOKED UP TO ALL MONITORS IN ROOM AND REPORT GIVEN TO RN WHO HAS TAKEN OVER PATIENT CARE. Addendum: 02/23/23 at 1301 by Roopa Hart RN Amended: Links added.
[2023-02-23] MEDS: nicotine 21mg patch - 24 hr TD SCH (13:10)
[2023-02-23] MEDS: pantoprazole 40mg Tablet.DR PO SCH (13:11)
[2023-02-23] MEDS: docusate sod 100mg capsule PO SCH ×2 (13:11→19:36)
[2023-02-23] MEDS: metroNIDAZOLE-Flagyl 500mg/NS 100 ML IV SCH ×2 (13:11→23:39)
[2023-02-23] MEDS: insulin Lispro (HumaLOG) vial - multi-dose SQ SCH ×3 (13:35→21:30)
--- NOTE | 2023-02-23 19:10 | NUR ---
Problems reprioritized. Patient report given, questions answered & plan of care reviewed with Prudence RN.
--- NOTE | 2023-02-23 19:21 | NUR ---
Patient in room DEEP 344. I have received report from PROMISE MAY and had the opportunity to ask questions and assume patient care.
[2023-02-23] MEDS: insulin glargine (Lantus) pen - multi-dose SQ SCH (21:31)
[2023-02-24] MEDS: HYDROmorph/NS 0.2 mg/ml PCA 100 ML IV SCH ×5 (01:00→09:00)
[2023-02-24 02:18] VITALS: BP 125/76
[2023-02-24] MEDS: normal saline 1000ml 1,000 ML IV SCH ×3 (03:12→23:53)
[2023-02-24 06:00] VITALS: BP 141/94
--- NOTE | 2023-02-24 06:14 | NUR ---
Problems reprioritized. Patient report given, questions answered & plan of care reviewed with REKHA MAY.
[2023-02-24 07:03] LABS: BASOPHILS # (AUTO) 0.1 X10'3 (0-0.2); BASOPHILS % (AUTO) 0.5 % (0-1); EOSINOPHILS # (AUTO) 0.1 X10'3 (0-0.9); EOSINOPHILS % (AUTO) 0.8 % (0-6); HEMATOCRIT 32.9 % (42.0-52.0); LYMPHOCYTES # (AUTO) 1.7 X10'3 (1.1-4.8); LYMPHOCYTES % (AUTO) 16.8 % (21-51); MEAN CORPUSCULAR HEMOGLOBIN 30.4 PG (27.0-31.0); MEAN CORPUSCULAR HGB CONC 33.5 g/dL (33.0-36.5); MEAN CORPUSCULAR VOLUME 90.9 FL (78-98); MEAN PLATELET VOLUME 7.3 FL (7.4-10.4); MONOCYTES # (AUTO) 0.9 X10'3 (0-0.9); MONOCYTES % (AUTO) 9.3 % (2-12); NEUTROPHILS # (AUTO) 7.3 X10'3 (1.8-7.7); NEUTROPHILS % (AUTO) 72.6 % (42-75); PLATELET COUNT 499 X10'3 (140-440); RED BLOOD COUNT 3.61 X10'6 (4.70-6.10); RED CELL DISTRIBUTION WIDTH 14.4 % (11.5-14.5); WHITE BLOOD COUNT 10.1 X10'3 (4.5-11.0)
[2023-02-24] MEDS ORDERED: PCA WASTE DOCUMENTATION 1 MG ML MC SCH (07:05)
[2023-02-24 07:22] LABS: ALANINE AMINOTRANSFERASE 10 U/L (12-78); ALBUMIN 2.4 G/DL (3.4-5.0); ALBUMIN/GLOBULIN RATIO 0.4 (1.1-1.5); ALKALINE PHOSPHATASE 52 IU/L (46-116); ANION GAP 7 (8-16); ASPARTATE AMINO TRANSFERASE 14 U/L (10-37); BILIRUBIN,TOTAL 0.3 MG/DL (0.1-1.0); BLOOD UREA NITROGEN 9 MG/DL (7-18); BUN/CREATININE RATIO 11.1 (10.0-20.0); CALCIUM 8.6 MG/DL (8.5-10.1); CHLORIDE 100 MMOL/L (99-107); CREATININE 0.81 MG/DL (0.60-1.10); GLUCOSE 180 MG/DL (70-104); POTASSIUM 3.9 MMOL/L (3.5-5.1); SODIUM 136 MMOL/L (135-145); TOTAL CARBON DIOXIDE 29.1 MMOL/L (24-32); TOTAL PROTEIN 8.4 G/DL (6.4-8.2); eGFR > 90 ML/MIN
--- NOTE | 2023-02-24 07:29 | NUR ---
Patient in room DEEP 344A. I have received report from LALO COCHRAN and had the opportunity to ask questions and assume patient care.
[2023-02-24] MEDS: K and/or MAG REPLACEMENT MC SCH ×2 (08:00→20:00)
[2023-02-24] MEDS: pantoprazole 40mg Tablet.DR PO SCH (08:30)
[2023-02-24] MEDS: docusate sod 100mg capsule PO SCH ×2 (08:31→20:32)
[2023-02-24] MEDS: nicotine 21mg patch - 24 hr TD SCH (08:31)
[2023-02-24] MEDS: insulin Lispro (HumaLOG) vial - multi-dose SQ SCH ×4 (08:37→21:42)
[2023-02-24 11:00] VITALS: BP 132/90
[2023-02-24] MEDS ORDERED: oxyCODONE/APAP 5-325mg tablet PO PRN (11:05)
[2023-02-24] MEDS ORDERED: morphine ER 15mg tablet PO SCH (11:05)
[2023-02-24] MEDS: metroNIDAZOLE-Flagyl 500mg/NS 100 ML IV SCH (11:57)
[2023-02-24] MEDS: morphine ER 15mg tablet PO SCH ×2 (11:58→20:33)
[2023-02-24] MEDS: ALPRAZolam 0.5mg tablet PO PRN ×2 (14:43→23:59)
[2023-02-24] MEDS: oxyCODONE/APAP 10/325mg tablet PO PRN (14:43)
[2023-02-24 18:00] VITALS: BP 116/64
--- NOTE | 2023-02-24 18:11 | NUR ---
Problems reprioritized. Patient report given, questions answered & plan of care reviewed with LALO LUNA.
[2023-02-24] MEDS: metroNIDAZOLE 500mg tablet PO SCH (20:32)
[2023-02-24 20:33] VITALS: BP 128/80
[2023-02-24] MEDS: insulin glargine (Lantus) pen - multi-dose SQ SCH (21:42)
[2023-02-24 22:00] VITALS: BP 101/60
[2023-02-25 05:02] LABS: BASOPHILS % (AUTO) 0.4 % (0-1); EOSINOPHILS # (AUTO) 0.1 X10'3 (0-0.9); EOSINOPHILS % (AUTO) 1.5 % (0-6); HEMATOCRIT 30.5 % (42.0-52.0); HEMOGLOBIN 10.4 g/dl (14.0-17.9); LYMPHOCYTES # (AUTO) 2.1 X10'3 (1.1-4.8); LYMPHOCYTES % (AUTO) 23.4 % (21-51); MEAN CORPUSCULAR HEMOGLOBIN 31.2 PG (27.0-31.0); MEAN CORPUSCULAR HGB CONC 34.2 g/dL (33.0-36.5); MEAN CORPUSCULAR VOLUME 91.3 FL (78-98); MEAN PLATELET VOLUME 6.4 FL (7.4-10.4); MONOCYTES % (AUTO) 10.5 % (2-12); NEUTROPHILS # (AUTO) 5.9 X10'3 (1.8-7.7); NEUTROPHILS % (AUTO) 64.2 % (42-75); PLATELET COUNT 431 X10'3 (140-440); RED BLOOD COUNT 3.34 X10'6 (4.70-6.10); RED CELL DISTRIBUTION WIDTH 14.9 % (11.5-14.5); WHITE BLOOD COUNT 9.1 X10'3 (4.5-11.0)
[2023-02-25 05:24] LABS: ALANINE AMINOTRANSFERASE 9 U/L (12-78); ALBUMIN 2.2 G/DL (3.4-5.0); ALBUMIN/GLOBULIN RATIO 0.4 (1.1-1.5); ALKALINE PHOSPHATASE 50 IU/L (46-116); ANION GAP 4 (8-16); ASPARTATE AMINO TRANSFERASE 8 U/L (10-37); BILIRUBIN,TOTAL 0.3 MG/DL (0.1-1.0); BLOOD UREA NITROGEN 12 MG/DL (7-18); BUN/CREATININE RATIO 12.6 (10.0-20.0); CALCIUM 8.4 MG/DL (8.5-10.1); CHLORIDE 103 MMOL/L (99-107); CREATININE 0.95 MG/DL (0.60-1.10); GLUCOSE 181 MG/DL (70-104); POTASSIUM 3.8 MMOL/L (3.5-5.1); SODIUM 137 MMOL/L (135-145); TOTAL CARBON DIOXIDE 29.8 MMOL/L (24-32); TOTAL PROTEIN 7.8 G/DL (6.4-8.2); eGFR 87 ML/MIN
[2023-02-25 06:00] VITALS: BP 136/87
--- NOTE | 2023-02-25 06:23 | NUR ---
Problems reprioritized. Patient report given, questions answered & plan of care reviewed with LALO DA SILVA.
--- NOTE | 2023-02-25 06:31 | NUR ---
Patient in room DEEP 344A. I have received report from LALO LUNA and had the opportunity to ask questions and assume patient care.
[2023-02-25] MEDS: ALPRAZolam 0.5mg tablet PO PRN ×3 (07:40→23:18)
[2023-02-25] MEDS: metroNIDAZOLE 500mg tablet PO SCH ×2 (07:41→19:07)
[2023-02-25] MEDS: docusate sod 100mg capsule PO SCH ×2 (07:41→19:03)
[2023-02-25] MEDS: morphine ER 15mg tablet PO SCH ×2 (07:42→19:07)
[2023-02-25] MEDS: nicotine 21mg patch - 24 hr TD SCH (07:42)
[2023-02-25] MEDS: pantoprazole 40mg Tablet.DR PO SCH (07:42)
[2023-02-25] MEDS: K and/or MAG REPLACEMENT MC SCH ×2 (07:43→19:03)
[2023-02-25] MEDS: insulin Lispro (HumaLOG) vial - multi-dose SQ SCH ×4 (07:53→21:23)
[2023-02-25 10:00] VITALS: BP 144/85
[2023-02-25] MEDS: oxyCODONE/APAP 10/325mg tablet PO PRN ×4 (10:08→19:07)
[2023-02-25] MEDS: normal saline 1000ml 1,000 ML IV SCH ×2 (10:08→19:08)
--- NOTE | 2023-02-25 13:29 | NUR ---
DM Consult: Addressed; see prior RD note. Addendum: 02/25/23 at [address] Amended: Links added.
[2023-02-25 18:00] VITALS: BP 122/71
--- NOTE | 2023-02-25 18:31 | NUR ---
Problems reprioritized. Patient report given, questions answered & plan of care reviewed with LALO PHILIP.
[2023-02-25] MEDS: insulin glargine (Lantus) pen - multi-dose SQ SCH (21:23)
[2023-02-25 22:00] VITALS: BP 103/66
[2023-02-26] MEDS: oxyCODONE/APAP 10/325mg tablet PO PRN (01:17)
[2023-02-26] MEDS: normal saline 1000ml 1,000 ML IV SCH (04:16)
[2023-02-26 06:04] VITALS: BP 114/71
[2023-02-26 07:07] VITALS: BP 123/83
[2023-02-26] MEDS: pantoprazole 40mg Tablet.DR PO SCH (07:49)
[2023-02-26] MEDS: docusate sod 100mg capsule PO SCH (07:52)
[2023-02-26] MEDS: metroNIDAZOLE 500mg tablet PO SCH (07:52)
[2023-02-26] MEDS: nicotine 21mg patch - 24 hr TD SCH (07:52)
[2023-02-26] MEDS: morphine ER 15mg tablet PO SCH (07:53)
[2023-02-26] MEDS: insulin Lispro (HumaLOG) vial - multi-dose SQ SCH (08:49)
[2023-02-26] MEDS: ALPRAZolam 0.5mg tablet PO PRN (10:12)
[2023-02-26 10:27] VITALS: BP 94/48
[2023-02-26] MEDS: K and/or MAG REPLACEMENT MC SCH (10:45)
[2023-02-26] MEDS ORDERED: [UNRECOGNIZED DRUG - CODE] PO (12:09)
[2023-02-26] MEDS ORDERED: NICO-687 TD (12:09)
--- NOTE | 2023-02-26 13:39 | NUR ---
PATIENT STABLE AND APPRP Addendum: 02/26/23 at 1849 by Kenia Ramon RN PATIENT STABLE AND APPROPRIATE FOR DISCHARGE, IG REMOVED, TELE REMOVED, NEW MEDS E-SCRIPTED TO PREFERRED PHARMACY, EDUCATION GIVEN, CRUTCHES GIVEN, ALL BELONGINGS SENT WITH PATIENT, PATIENT TAKEN TO LOBBY BY WHEELCHAIR TO AN AWAITING CAR WHERE SISTER WILL TAKE PATIENT HOME
== END 2023-02-26 13:39 | disposition home or self-care (01) | DRG 305 ==
LOC: ER 18:28 → ED HOLD 02-22 02:40 → UNDOADMIN 02-22 03:45 → ED HOLD 02-22 03:45 → SUR 3N 02-22 07:32
PROVIDERS: ADMIT Family Medicine; ATTEND Internal Medicine
PROC: 0Y6M0ZB Detachment at Right Foot, Partial 2nd Ray, Open Approach (ICD-10-PCS; 2023-02-23)
PROC: 0Y6M0ZC Detachment at Right Foot, Partial 3rd Ray, Open Approach (ICD-10-PCS; 2023-02-23)
PROC: 0Y6M0ZD Detachment at Right Foot, Partial 4th Ray, Open Approach (ICD-10-PCS; 2023-02-23)
PROC: 0Y6M0ZF Detachment at Right Foot, Partial 5th Ray, Open Approach (ICD-10-PCS; 2023-02-23)
PROC: 0Y6M0Z9 Detachment at Right Foot, Partial 1st Ray, Open Approach (ICD-10-PCS; principal; 2023-02-23 08:02)
DX: T87.43 Infection of amputation stump, right lower extremity (principal); N17.9 Acute kidney failure, unspecified; M86.171 Other acute osteomyelitis, right ankle and foot; E11.22 Type 2 diabetes mellitus with diabetic chronic kidney disease; E11.52 Type 2 diabetes mellitus with diabetic peripheral angiopathy with gangrene; E88.09 Other disorders of plasma-protein metabolism, not elsewhere classified; E87.1 Hypo-osmolality and hyponatremia; I70.261 Atherosclerosis of native arteries of extremities with gangrene, right leg; L03.115 Cellulitis of right lower limb; B95.4 Other streptococcus as the cause of diseases classified elsewhere; E11.69 Type 2 diabetes mellitus with other specified complication; D64.9 Anemia, unspecified; F11.129 Opioid abuse with intoxication, unspecified; E11.65 Type 2 diabetes mellitus with hyperglycemia; E66.01 Morbid (severe) obesity due to excess calories; I12.9 Hypertensive chronic kidney disease with stage 1 through stage 4 chronic kidney disease, or unspecified chronic kidney disease; F41.9 Anxiety disorder, unspecified; N18.9 Chronic kidney disease, unspecified; Y83.5 Amputation of limb(s) as the cause of abnormal reaction of the patient, or of later complication, without mention of misadventure at the time of the procedure; F32.A Depression, unspecified; M54.9 Dorsalgia, unspecified; E11.628 Type 2 diabetes mellitus with other skin complications; E78.5 Hyperlipidemia, unspecified; F17.210 Nicotine dependence, cigarettes, uncomplicated; G89.4 Chronic pain syndrome; Z56.0 Unemployment, unspecified; Z68.34 Body mass index [BMI] 34.0-34.9, adult; Z79.4 Long term (current) use of insulin; Z79.84 Long term (current) use of oral hypoglycemic drugs; Z83.3 Family history of diabetes mellitus; Z79.899 Other long term (current) drug therapy; Z71.6 Tobacco abuse counseling; Z71.51 Drug abuse counseling and surveillance of drug abuser; Y92.89 Other specified places as the place of occurrence of the external cause; Z91.199 Patient's noncompliance with other medical treatment and regimen due to unspecified reason
CPT/HCPCS: 36415; 71045; 71046; 80048; 80053; 80305; 81001; 82550; 82948; 83036; 83605; 83690; 83735; 83880; 84100; 84145; 84484; 85025; 85610; 85651; 85730; 86140; 87040; 87081; 93005; 93306; 96361; 96365; 96368; 96375; 97116; 97161; 97530; 99285; A4615; A4618; A6258; A6402; A6449; A7000; G0378; J0131; J1170; J1815; J1956; J2175; J2250; J2270; J2704; J3010; J3490; J7030; Q0163